=== PATIENT | male | born 1945 | race Caucasian/White ===

== ENCOUNTER 2016-10-05 09:24 | Observation (INO) | payer OTHER, MEDICARE ==
[~2016-10-05] VITALS: Ht 175.3 cm; Wt 117.0 kg
[2016-10-05] VITALS (10 sets, daily range): BP systolic 143–187; BP diastolic 81–109; PULSE 63–84; RESP 17–20; TEMP 98–98.5; O2SAT 92–97
[~2016-10-05 09:24] MED LIST: CARB0.5D16 EACH EYE; EFFE75CA PO; HYDR-3129 PO; KETO2SHA5 TOP; METF500 PO; MIRT30TA PO; NOVOLOGMXP SQ; PRAV10 PO; WARF5TAB PO; [UNRECOGNIZED DRUG - CODE] PO
[2016-10-05] MEDS ORDERED: SODIUM CHLOR 0.9% 1000 ML INJ 1,000 ML IV SCH (09:58)
[2016-10-05] MEDS ORDERED: SODIUM CHLORIDE 0.9% FLUSH 10 ML FLUSH IVF PRN (10:00)
[2016-10-05] MEDS ORDERED: MORPHINE SULFATE 4 MG/ML INJ IV PUSH ONE (10:15)
[2016-10-05] MEDS ORDERED: ONDANSETRON HCL 4 MG/2 ML VIAL IV PUSH ONE (10:15)
[2016-10-05 10:35] LABS: AUTOMATED NEUTROPHIL # 12.9 TH/MM3 (1.8-7.7); BASOPHIL # 0.1 TH/MM3 (0-0.2); BASOPHIL % 0.5 % (0.0-2.0); EOSINOPHIL # 0.1 TH/MM3 (0-0.4); EOSINOPHIL % 0.6 % (0.0-4.0); HEMATOCRIT 48.6 % (39.0-51.0); HEMO FLAGS DIFF FINAL; LYMPH % 11.3 % (9.0-44.0); LYMPHOCYTE # 1.8 TH/MM3 (1.0-4.8); MEAN CELL VOLUME 86.7 FL (80.0-100.0); MEAN CORPUSCULAR HEMOGLOBIN 27.8 PG (27.0-34.0); MEAN CORPUSCULAR HGB CONC 32.1 % (32.0-36.0); MONO % 6.1 % (0.0-8.0); NEUT % 81.5 % (16.0-70.0); PLATELET COUNT 169 TH/MM3 (150-450); RED CELL DISTRIBUTION WIDTH 16.6 % (11.6-17.2); WHITE BLOOD COUNT 15.8 TH/MM3 (4.0-11.0)
[2016-10-05] MEDS ORDERED: PRAV10TA PO (10:41)
[2016-10-05] MEDS ORDERED: METF1000 PO (10:41)
[2016-10-05] MEDS ORDERED: KETO2CRE TOPICAL (10:41)
[2016-10-05] MEDS ORDERED: LISI10TA3 PO (10:41)
[2016-10-05] MEDS ORDERED: SOTA80TA PO (10:41)
[2016-10-05] MEDS ORDERED: WARF-21 PO (10:41)
[2016-10-05] MEDS ORDERED: MIRT30TA PO (10:41)
[2016-10-05] MEDS ORDERED: GABA300C5 PO (10:41)
[2016-10-05] MEDS ORDERED: BUSP10TA PO (10:41)
[2016-10-05] MEDS ORDERED: OMEP20TA PO (10:41)
[2016-10-05] MEDS ORDERED: FURO20TA PO (10:41)
[2016-10-05] MEDS ORDERED: VENL75CA44 PO (10:41)
[2016-10-05] MEDS ORDERED: FLUO0.022 TOPICAL (10:41)
[2016-10-05] MEDS ORDERED: NOVOINJ2 SQ (10:41)
[2016-10-05 10:54] LABS: BICARBONATE 29.5 MEQ/L (21.0-32.0)
[2016-10-05 10:55] LABS: POTASSIUM 4.7 MEQ/L (3.5-5.1)
[2016-10-05 10:59] LABS: INTERNATIONAL NORMALIZED RATIO 1.9 RATIO; PROTHROMBIN TIME - PATIENT 21.8 SEC (9.8-11.6)
--- NOTE | 2016-10-05 11:00 | RADRPT ---
EXAM DATE/TIME: 10/05/2016 10:25 [place] COMPARISON: No previous studies available for comparison. INDICATIONS : Abdomen pain with nausea and vomiting since Tuesday ORAL CONTRAST: No oral contrast ingested. RADIATION DOSE: 19.81 CTDIvol (mGy) MEDICAL HISTORY : Cardiovascular disease. Hypertension. SURGICAL HISTORY : CABG ENCOUNTER: Initial ACUITY: 1 day PAIN SCALE: 3/10 LOCATION: Abdomen TECHNIQUE: Volumetric scanning of the abdomen and pelvis was performed. Using automated exposure control and ad justment of the mA and/or kV according to patient size, radiation dose was kept as low as reasonably achievable to obtain optimal diagnostic quality images. DICOM format image data is available electro nically for review and comparison. FINDINGS: LOWER LUNGS: Linear scarring or atelectasis in both lung bases. No confluent infiltrate LIVER: Homogeneous density without lesion. There is no dilation of the biliary tree. No calcified gallston es. SPLEEN: Normal size without lesion. PANCREAS: There is some haziness in the peripancreatic fat inferior to the organ and adjacent to third portion of the duodenum. The pancreas itself is radiographically intact. KIDNEYS: Normal in size and shape. There is no mass, stone, or hydronephrosis. 2.7 cm hypodensity posteriorly in the inferior pole cortex of right kidney is characteristic of a cyst. ADRENAL GLANDS: [place] nodule in the right adrenal gland likely represents an adenoma. VASCULAR: There is no aortic aneurysm. BOWEL/MESENTERY: Severe diverticular disease of the sigmoid without diverticulitis. ABDOMINAL WALL: Within normal limits. RETROPERITONEUM: There is no lymphadenopathy. BLADDER: No wall thickening or mass. REPRODUCTIVE: Within normal limits. INGUINAL: Small bilateral hernias which only contain fat. 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 There is been surgical resection of a number of inferior ribs in the right chest laterally with some herniation of the upper abdominal contents into the marcia onal lateral soft tissues. CONCLUSION: 1. Stranding in the fatty tissues juxtaposed between the head and uncinate process of the pancreas an d the adjacent third portion of the duodenum. Diagnostic considerations include early diverticulitis or duodenitis. Please correlate with laboratory findings. 2. Probable postsurgical changes with multiple lateral rib resections inferiorly in the right hemitho rax. 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 3. Diverticular disease of sigmoid without diverticulitis. 4. Bilateral small inguinal hernias which only contain fat. Xavier Hu MD on October 05, 2016 at 10:48 Board Certified Radiologist. This report was verified electronically.
[2016-10-05] MEDS ORDERED: COUM5TAB PO (11:06)
[2016-10-05] MEDS ORDERED: NOVO7030P2 SQ (11:06)
[2016-10-05] MEDS ORDERED: ARTISOL EACH EYE (11:06)
[2016-10-05] MEDS ORDERED: FLUO0.05 TOPICAL (11:06)
[2016-10-05] MEDS ORDERED: METF500T PO (11:06)
[2016-10-05] MEDS ORDERED: CIPROFLOXACIN 400 MG PREMIX 200 ML IV ONE (11:45)
[2016-10-05] MEDS ORDERED: metroNIDAZOLE 500 MG INJ 100 ML IV ONE (11:45)
--- NOTE | 2016-10-05 12:17 | PD ---
HPI Chief Complaint: GI Complaint Time Seen by Provider: 09:39 Travel History International Travel<30 days: No Contact w/Intl Traveler<30days: No Traveled to known affect area: No History of Present Illness HPI 70-year-old male came to the emergency room with history of abdominal pain, vomiting and rectal bleed since yesterday. Patient says that he vomited numerous times and mostly undigested food has come out with no blood. He is also having rectal bleed which is 2 since last night. This is bright red. He has history of hemorrhoids and to him it seems like hemorrhoid bleed but he is not sure. Abdominal pain is mostly upper abdomen and nonradiating. No aggravating or relieving factors identified. Patient is on Coumadin for atrial fibrillation. No history of fever or chills. His last bloody bowel movement was earlier this morning. Patient seems to be anxious and in moderate distress but answering questions appropriately. He has had history of duodenal ulcer a few years ago. Patient mostly goes to [facility] for his care. His vital signs were within acceptable range. [facility] [place] Past Medical History Narrative Medical List of his past medical, surgical, social and family history is reviewed from the nursing note. Hx Anticoagulant Therapy: Yes (warfarin) Arthritis: Yes Asthma: No Autoimmune Disease: No Anxiety: Yes Depression: Yes Heart Rhythm Problems: Yes (a fib) Cancer: No Cardiac Catheterization: Yes Cardiovascular Problems: Yes (A-FIB) High Cholesterol: Yes Chemotherapy: No Chest Pain: No Congestive Heart Failure: No COPD: Yes Cerebrovascular Accident: No Diabetes: Yes Patient Takes Glucophage: Yes Diminished Hearing: Yes (HEARING AIDS) Endocrine: No Gastrointestinal Disorders: Yes GERD: Yes Genitourinary: No Headaches: Yes Hiatal Hernia: No Hypertension: Yes Immune Disorder: No Kidney Stones: No Musculoskeletal: Yes (bilateral legs) Neurologic: Yes Psychiatric: Yes Reproductive: No Respiratory: Yes (COPD) Migraines: No Myocardial Infarction: Yes Radiation Therapy: No Renal Failure: No Seizures: No Sickle Cell Disease: No Sleep Apnea: Yes Thyroid Disease: No Ulcer: No Tetanus Vaccination: Unknown Influenza Vaccination: Yes Past Surgical History Abdominal Surgery: No AICD: No Arteriovenous Shunt: No Cardiac Surgery: Yes (double bypass, aortic valve replacement, stent) Coronary Artery Bypass Graft: Yes (DOUBLE BYPASS, AORTIC VALVE, STENT) Ear Surgery: No Endocrine Surgery: No Eye Surgery: No Genitourinary Surgery: No Insulin Pump: No Joint Replacement: No Oral Surgery: Yes (removal of all the teeth) Thoracic Surgery: Yes (for heart surgeries) Other Surgery: Yes Social History Alcohol Use: Yes (OCCASIONAL) Tobacco Use: No (QUIT TUESDAY) Substance Use: No Allergies-Medications (Allergen,Severity, Reaction): Coded Allergies: metformin (Unverified Adverse Reaction, Unknown, 10/05/16) LISTED ALLERGY ON PAPERWORK FROM [facility], BUT PT IS CURRENTLY TAKING METFORMIN niacin (Unverified Adverse Reaction, Unknown, 10/05/16) LISTED ALLERGY ON PAPERWORK FROM [facility] pravastatin (Verified Adverse Reaction, Unknown, 10/05/16) LISTED ALLERGY ON PAPERWORK FROM [facility], BUT PT IS CURRENTLY TAKING PRAVASTATIN simvastatin (Verified Adverse Reaction, Unknown, 10/05/16) LISTED ALLERGY ON PAPERWORK FROM [facility] Comments List of his allergies reviewed from the nursing note. Reported Meds & Prescriptions Reported Meds & Active Scripts Active Reported Coumadin (Warfarin) 5 Mg Tab 10 Mg PO TUESDAY Take 2 tablets (10mg) daily on Wednesdays Artificial Tears Eye Drops (Dextran 70/Hypromellose) 15 Ml Drops 1 Drop EACH EYE QID Metformin (Metformin HCl) 500 Mg Tab 2,000 Mg PO DAILY With a meal Fluocinonide Topical (Fluocinonide) 0.05% Cream 1 Applic TOPICAL BID PRN Apply thin layer to affected area(s) Novolin 70-30 Inj (Insulin Human Isoph/Insulin Regular) 1,000 Unit/10 Ml Vial 42 Units SQ BIDAC Warfarin 7.5 Mg Tab 7.5 Mg PO [facility] Take 1&1/2 tablets (7.5mg) daily on Tuesday,Tuesday,Tuesday,, Tuesday and Tuesday Furosemide 20 Mg Tab 20 Mg PO DAILY Ketoconazole Topical 2% Cream 1 Applic TOPICAL BID Gabapentin 300 Mg Cap 600 Mg PO TID Pravastatin 10 Mg Tab 10 Mg PO HS Buspirone (Buspirone HCl) 10 Mg Tab 10 Mg PO BID Sotalol (Sotalol HCl) 80 Mg Tab 80 Mg PO BID Lisinopril 10 Mg Tab 5 Mg PO DAILY Venlafaxine ER 24 HR (Venlafaxine HCl) 75 Mg Cap 225 Mg PO DAILY Mirtazapine 30 Mg Tab 30 Mg PO HS Narrative Medication List of his home medications reviewed from the nursing note. Review of Systems Except as stated in HPI: all other systems reviewed are Neg Physical Exam Narrative GENERAL: Awake, alert, moderate distress, anxious SKIN: Focused skin assessment warm/dry. HEAD: Atraumatic. Normocephalic. EYES: Pupils equal and round. No scleral icterus. No injection or drainage. ENT: No nasal bleeding or discharge. Mucous membranes pink and moist. NECK: Trachea midline. No JVD. CARDIOVASCULAR: Regular rate and rhythm. No murmur appreciated. RESPIRATORY: No accessory muscle use. Clear to auscultation. Breath sounds equal bilaterally. GASTROINTESTINAL: Abdomen is distended and tense but nontender mostly. Hepatic and splenic margins not palpable. MUSCULOSKELETAL: No obvious deformities. No clubbing. No cyanosis. No edema. NEUROLOGICAL: Awake and alert. No obvious cranial nerve deficits. Motor grossly within normal limits. Normal speech. PSYCHIATRIC: Appropriate mood and affect; insight and judgment normal. Data Data Last Documented VS Vital Signs Date Time Temp Pulse Resp B/P (MAP) Pulse Ox O2 Delivery O2 Flow Rate FiO2 10/05/16 10:43 63 20 143/81 (101) 96 Room Air 10/05/16 09:25 98.5 Orders Orders Basic Metabolic Panel (Bmp) (10/05/16 09:58) Complete Blood Count With Diff (10/05/16 09:58) Prothrombin Time / Inr (Pt) (10/05/16 09:58) Type And Screen (10/05/16 09:58) Ecg Monitoring (10/05/16 09:58) Iv Access Insert/Monitor (10/05/16 09:58) Oximetry (10/05/16 09:58) Sodium Chlor 0.9% 1000 Ml Inj (Ns 1000 M (10/05/16 09:58) Sodium Chloride 0.9% Flush (Ns Flush) (10/05/16 10:00) Electrocardiogram (10/05/16 ) Morphine Inj (Morphine Inj) (10/05/16 10:15) Ondansetron Inj (Zofran Inj) (10/05/16 10:15) Ct Abd/Pel W/O Iv Contrast (10/05/16 ) Ciprofloxacin 400 Mg Premix (Cipro 400 M (10/05/16 11:45) Metronidazole 500 Mg Inj (Flagyl 500 Mg (10/05/16 11:45) Sodium Chloride 0.9... W/Pantoprazole In (10/05/16 12:50) Sodium Chloride 0.9... W/Pantoprazole In (10/05/16 12:50) Consult Gastroenterology (10/05/16 ) Admit Order (Ed Use Only) (10/05/16 12:47) Place In Observation (10/05/16 ) Vital Signs (Adult) Q4H (10/05/16 12:46) Activity Oob With Assistance (10/05/16 12:46) Diet Clear Liquid (10/05/16 Lunch) Sodium Chlor 0.9% 1000 Ml Inj (Ns 1000 M (10/05/16 12:46) Sodium Chloride 0.9% Flush (Ns Flush) (10/05/16 13:00) Sodium Chloride 0.9% Flush (Ns Flush) (10/05/16 21:00) Acetaminophen (Tylenol) (10/05/16 13:00) Ondansetron Inj (Zofran Inj) (10/05/16 13:00) Basic Metabolic Panel (Bmp) (10/06/16 06:00) Complete Blood Count With Diff (10/06/16 06:00) Scd Bilateral/Knee High GABRIELLE.BID (10/05/16 12:46) Naloxone Inj (Narcan Inj) (10/05/16 13:00) Docusate Sodium-Senna (Ciara-Colace) (10/05/16 21:00) Magnesium Hydroxide Liq (Milk Of Magnesi (10/05/16 13:00) Sennosides (Senokot) (10/05/16 13:00) Bisacodyl Supp (Dulcolax Supp) (10/05/16 13:00) Lactulose Liq (Lactulose Liq) (10/05/16 13:00) Pantoprazole Inj (Protonix Inj) (10/05/16 21:00) Labs Laboratory Tests Test 10/05/16 10:20 White Blood Count 15.8 TH/MM3 Red Blood Count 5.60 MIL/MM3 Hemoglobin 15.6 GM/DL Hematocrit 48.6 % Mean Corpuscular Volume 86.7 FL Mean Corpuscular Hemoglobin 27.8 PG Mean Corpuscular Hemoglobin Concent 32.1 % Red Cell Distribution Width 16.6 % Platelet Count 169 TH/MM3 Mean Platelet Volume 8.2 FL Neutrophils (%) (Auto) 81.5 % Lymphocytes (%) (Auto) 11.3 % Monocytes (%) (Auto) 6.1 % Eosinophils (%) (Auto) 0.6 % Basophils (%) (Auto) 0.5 % Neutrophils # (Auto) 12.9 TH/MM3 Lymphocytes # (Auto) 1.8 TH/MM3 Monocytes # (Auto) 1.0 TH/MM3 Eosinophils # (Auto) 0.1 TH/MM3 Basophils # (Auto) 0.1 TH/MM3 CBC Comment DIFF FINAL Differential Comment Prothrombin Time 21.8 SEC Prothromb Time International Ratio 1.9 RATIO Blood Urea Nitrogen 14 MG/DL Creatinine 0.91 MG/DL Random Glucose 226 MG/DL Calcium Level 8.8 MG/DL Sodium Level 137 MEQ/L Potassium Level 4.7 MEQ/L Chloride Level 100 MEQ/L Carbon Dioxide Level 29.5 MEQ/L Anion Gap 8 MEQ/L Estimat Glomerular Filtration Rate 83 ML/MIN Total Bilirubin 0.7 MG/DL Direct Bilirubin 0.1 MG/DL Indirect Bilirubin 0.6 MG/DL Aspartate Amino Transf (AST/SGOT) 30 U/L Alanine Aminotransferase (ALT/SGPT) 30 U/L Alkaline Phosphatase 98 U/L Total Protein 7.4 GM/DL Albumin 3.2 GM/DL Lipase 230 U/L [facility] Medical Decision Making Medical Screen Exam Complete: Yes Emergency Medical Condition: Yes Medical Record Reviewed: Yes (twelve-lead EKG was reviewed by me. Normal sinus rhythm, normal axis, nonspecific ST-T wave changes. Heart rate of 82 bpm. ) Interpretation(s) Twelve-lead EKG was reviewed by me. Normal sinus rhythm, normal axis, nonspecific ST-T wave changes. Heart rate of 82 bpm. Differential Diagnosis Upper GI bleed, lower GI bleed, hemorrhoids, gastric ulcer, duodenal ulcer, diverticulitis Narrative Course 12:42 PM blood test results of back and patient has slight leukocytosis. The scan is suggestive of duodenitis. I have started the patient on IV Protonix bolus and drip. Patient was given medication for pain as well. I discussed the case with the GI specialist Dr. Rick was honey grader and blender and he agrees with admission. Awaiting for the hospitalist call back. Critical Care Narrative Aggregate critical care time was 30 minutes. Time to perform other separately billable procedures was not included in the critical care time. My time did not include minutes spent treating any other patients simultaneously or on activities that did not directly contribute to the patient's treatment. The services I provided to this patient were to treat and/or prevent clinically significant deterioration that could result in: GI bleed, 1 night's, Protonix bolus and drip I provided critical care services requiring my management, as noted below: Chart data review, documentation time, medication orders and management, vital sign assessments/reviewing monitor data, ordering and reviewing lab tests, ordering and interpreting/reviewing x-rays and diagnostic studies, care of the patient and discussion of the patient with the admitting physicians. Procedures EKG Prior to Arrival: No HemaPrompt Point of Care Internal Pos. & Neg. Controls: Passed Fecal Specimen Occult Blood: Positive Physician Communication Physician Communication Dr. Rick Diagnosis Primary Impression: Duodenitis Additional Impressions: gastric outlet syndrome Vomiting Qualified Codes: R11.2 - Nausea with vomiting, unspecified Abdominal pain Qualified Codes: R10.84 - Generalized abdominal pain Rectal bleeding Admitting Information Admitting Physician Requests: Observation Scripts Pantoprazole (Protonix) 40 Mg Tab 40 MG PO BID for Reflux, #60 TAB 0 Refills Prov: Ish Subramanian 10/07/16 Metronidazole (Flagyl) 500 Mg Tab 500 MG PO Q8HR for Infection, #30 TAB Prov: Ish Subramanian 10/07/16 Ciprofloxacin (Cipro) 500 Mg Tab 500 MG PO Q12HR for Infection, #20 TAB Prov: Ish Subramanian 10/07/16 Kimberly Rojas MD Oct 05, 2016 12:17
[2016-10-05] MEDS ORDERED: PANTOPRAZOLE INJ 80 MG in SODIUM CHLORIDE 0.9% INJ 100 ML IV SCH (12:50)
[2016-10-05] MEDS ORDERED: PANTOPRAZOLE INJ 80 MG in SODIUM CHLORIDE 0.9% INJ 35 ML IV ONE (12:50)
[2016-10-05] MEDS ORDERED: NALOXONE HCL 0.4 MG/ML AMP IV PRN (13:00)
[2016-10-05] MEDS ORDERED: ONDANSETRON HCL 4 MG/2 ML VIAL IVP PRN (13:00)
[2016-10-05] MEDS ORDERED: LACTULOSE SYRUP 20 GM/30 ML CUP PO PRN (13:00)
[2016-10-05] MEDS ORDERED: ACETAMINOPHEN 325 MG TAB PO PRN ×2 (13:00→15:15)
[2016-10-05] MEDS ORDERED: BISACODYL 10 MG SUPP RECTAL PRN (13:00)
[2016-10-05] MEDS ORDERED: SENNOSIDES 8.6 MG TAB PO PRN (13:00)
[2016-10-05] MEDS ORDERED: MAGNESIUM HYDROXIDE SUSP 30 ML CUP PO PRN (13:00)
[2016-10-05] MEDS ORDERED: SODIUM CHLORIDE 0.9% FLUSH 10 ML FLUSH IV FLUSH PRN (13:00)
--- NOTE | 2016-10-05 13:50 | PD.CONS ---
HPI History of Present Illness This is a 70 year old male with a history of atrial fibrillation (on Coumadin), who presented to the emergency room with abdominal pain with associated nausea/ vomiting and rectal bleeding that began Tuesday afternoon. He describes the pain as a constant diffuse abdominal pain. This was initially sharp, but now is more a constant ache. He has associated nausea and vomiting with undigested food, but no hematemesis. He denies any diarrhea or recent straining to move his bowels. He reports that he has some bloating, but denies fever or chills. He Had the sudden urge to move his bowels last night, but passed a large amount of red blood- independent from stool. He then had another episode with a smaller amount of blood this morning. His symptoms are aggravated by oral intake and partially relieved with the Morphine here in the hospital. His last colonoscopy was through the [place] around January of 2016 and he reports that he had 36 benign polyps removed at that time. He states he is scheduled for another colonoscopy at the end of this year. His INR is 1.9. HH stable at 15.6 /48.6. CT Abdomen and pelvis without IV contrast (10/05/16)---> stranding in the fatty tissues juxtaposed between the head and uncinate process of the pancreas and the adjacent third portion of the duodenum. Diagnostic considerations include early diverticulitis or duodenitis. (Chaya Thomas) PFSH Past Medical History Anxiety/Depression Atrial fibrillation Hyperlipidemia DM GERD HTN COPD CAD/[place] Sleep apnea Valvular heart disease Past Surgical History Cardiac catheterization with stent CABG Aortic valve replacement- pig Tooth extraction (Chaya Thomas) Coded Allergies: metformin (Unverified Adverse Reaction, Unknown, 10/05/16) LISTED ALLERGY ON PAPERWORK FROM [place], BUT PT IS CURRENTLY TAKING METFORMIN niacin (Unverified Adverse Reaction, Unknown, 10/05/16) LISTED ALLERGY ON PAPERWORK FROM [place] pravastatin (Verified Adverse Reaction, Unknown, 10/05/16) LISTED ALLERGY ON PAPERWORK FROM [place], BUT PT IS CURRENTLY TAKING PRAVASTATIN simvastatin (Verified Adverse Reaction, Unknown, 10/05/16) LISTED ALLERGY ON PAPERWORK FROM [place] Medications Allergies Coded Allergies Type Severity Reaction Last Updated Verified metformin Adverse Reaction Unknown 10/05/16 No niacin Adverse Reaction Unknown 10/05/16 No pravastatin Adverse Reaction Unknown 10/05/16 Yes simvastatin Adverse Reaction Unknown 10/05/16 Yes Active Scripts Medications Dose Route/Sig Max Daily Dose Days Date Category Dose Instructions Coumadin (Warfarin) 5 Mg Tab 10 Mg PO Tuesday10/05/16 Reported Take 2 tablets (10mg) daily on Wednesdays Artificial Tears Eye Drops (Dextran 70/Hypromellose) 15 Ml Drops 1 Drop EACH EYE QID 10/05/16 Reported Metformin (Metformin HCl) 500 Mg Tab 2,000 Mg PO DAILY 10/05/16 Reported With a meal Fluocinonide Topical (Fluocinonide) 0.05% Cream 1 Applic TOPICAL BID PRN 10/05/16 Reported Apply thin layer to affected area(s) Novolin 70-30 Inj (Insulin Human Isoph/Insulin Regular) 1,000 Unit/10 Ml Vial 42 Units SQ BIDAC 10/05/16 Reported Warfarin 7.5 Mg Tab 7.5 Mg PO SUMOTUTHFRSA 10/05/16 Reported Take 1&1/2 tablets (7.5mg) daily on Tuesday,Tuesday,Tuesday, , Tuesday and Tuesday Furosemide 20 Mg Tab 20 Mg PO DAILY 10/05/16 Reported Ketoconazole Topical 2% Cream 1 Applic TOPICAL BID 10/05/16 Reported Gabapentin 300 Mg Cap 600 Mg PO TID 10/05/16 Reported Pravastatin 10 Mg Tab 10 Mg PO HS 10/05/16 Reported Buspirone (Buspirone HCl) 10 Mg Tab 10 Mg PO BID 10/05/16 Reported Omeprazole 20 Mg Tab 40 Mg PO DAILY 10/05/16 Reported Take before a meal Sotalol (Sotalol HCl) 80 Mg Tab 80 Mg PO BID 10/05/16 Reported Lisinopril 10 Mg Tab 5 Mg PO DAILY 10/05/16 Reported Venlafaxine ER 24 HR (Venlafaxine HCl) 75 Mg Cap 225 Mg PO DAILY 10/05/16 Reported Mirtazapine 30 Mg Tab 30 Mg PO HS 10/05/16 Reported Family History Sister from unknown type of cancer Dad had CVA Mother had DM Social History Recently quit smoking, prior to the weekend was smoking 1/2- 1ppd Occasional ETOH (Chaya Thomas) Review of Systems Constitutional: COMPLAINS OF: Fatigue, DENIES: Fever, Weight loss, Chills, Change in appetite Respiratory: DENIES: Cough, Shortness of breath Cardiovascular: DENIES: Chest pain Gastrointestinal: COMPLAINS OF: Abdominal pain, Nausea, Vomiting, Swelling of Abdomen, DENIES: Black stools, Bloody stools, Constipation, Diarrhea, Heartburn , Hematemesis Musculoskeletal: DENIES: Joint pain Integumentary: DENIES: Abnormal pigmentation Hematologic/lymphatic: DENIES: Bruising Neurologic: DENIES: Headache Psychiatric: DENIES: Confusion (Chaya Thomas) GI Exam Vitals I&O Vital Signs Date Time Temp Pulse Resp B/P (MAP) Pulse Ox O2 Delivery O2 Flow Rate FiO2 10/05/16 10:43 63 20 143/81 (101) 96 Room Air 10/05/16 10:10 96 Room Air 10/05/16 09:25 98.5 84 20 165/93 (117) 95 Room Air I/O 10/04/16 10/04/16 10/04/16 10/05/16 10/05/16 10/05/16 07:00 15:00 23:00 07:00 15:00 23:00 Intake Total 1000 ml Balance 1000 ml Intake IV Total [address] Abdomen and pelvis without IV contrast (10/05/16)---> stranding in the fatty tissues juxtaposed between the head and uncinate process of the pancreas and the adjacent third portion of the duodenum. Diagnostic considerations include early diverticulitis or duodenitis. Laboratory Test 10/05/16 10:20 White Blood Count 15.8 TH/MM3 Red Blood Count 5.60 MIL/MM3 Hemoglobin 15.6 GM/DL Hematocrit 48.6 % Mean Corpuscular Volume 86.7 FL Mean Corpuscular Hemoglobin 27.8 PG Mean Corpuscular Hemoglobin Concent 32.1 % Red Cell Distribution Width 16.6 % Platelet Count 169 TH/MM3 Mean Platelet Volume 8.2 FL Neutrophils (%) (Auto) 81.5 % Lymphocytes (%) (Auto) 11.3 % Monocytes (%) (Auto) 6.1 % Eosinophils (%) (Auto) 0.6 % Basophils (%) (Auto) 0.5 % Neutrophils # (Auto) 12.9 TH/MM3 Lymphocytes # (Auto) 1.8 TH/MM3 Monocytes # (Auto) 1.0 TH/MM3 Eosinophils # (Auto) 0.1 TH/MM3 Basophils # (Auto) 0.1 TH/MM3 CBC Comment DIFF FINAL Differential Comment Prothrombin Time 21.8 SEC Prothromb Time International Ratio 1.9 RATIO Blood Urea Nitrogen 14 MG/DL Creatinine 0.91 MG/DL Random Glucose 226 MG/DL Calcium Level 8.8 MG/DL Sodium Level 137 MEQ/L Potassium Level 4.7 MEQ/L Chloride Level 100 MEQ/L Carbon Dioxide Level 29.5 MEQ/L Anion Gap 8 MEQ/L Estimat Glomerular Filtration Rate 83 ML/MIN Physical Examination HEENT: Normocephalic; atraumatic; no jaundice. CHEST: CTA CARDIAC: RRR ABDOMEN: Soft, obese, mildly distended, mild diffuse tenderness, no hepatosplenomegaly; bowel sounds are present in all four quadrants. EXTREMITIES: No clubbing, cyanosis, or edema. SKIN: Normal; no rash; no jaundice. RESIDENTIAL ROOFER: No focal deficits; alert and oriented times three. (Chaya Thomas) Assessment and Plan Plan ASSESSMENT: - Lower GI Bleeding. 2 episodes of rectal bleeding, independent from stool- large amount last night, small to moderate amount today. Associated abdominal pain, n/v. No diarrhea, constipation. CT Abdomen and pelvis without IV contrast (10/05/16)---> stranding in the fatty tissues juxtaposed between the head and uncinate process of the pancreas and the adjacent third portion of the duodenum. Diagnostic considerations include early diverticulitis or duodenitis. Pt reports last colonoscopy was January of 2016 and that he had 36 benign polyps removed at that time. He states he is scheduled for another colonoscopy at the end of this year. His INR is 1.9. HH stable at 15.6/48.6. - Abdominal pain, n/v. CT as above. Began Tuesday. PPI. Will check lipase. PPI. Add flagyl - Leukocytosis. WBC 15.8. Add flagyl. - Atrial fibrillation, on coumadin at home. - COPD, HTN, CAD, DM, Hyperlipidemia per attending PLAN: - Clear liquids - Cipro/Flagyl - PPI - Stool studies - Lipase - LFT - CBC, CMP - Possible egd/colonoscopy after the above and based on clinical status - Pt seen and examined by Dr. Rick and myself and this note is written on his behalf (Thomas,Chaya Naomy POWER TRANSFORMER ASSEMBLER) Physician Comments Seen and examined, plan as above. Further recommendations to follow. (Jorge Rick MD) Chaya Thomas Oct 05, 2016 13:50 Jorge Rick MD Oct 05, 2016 16:04
[2016-10-05] MEDS ORDERED: ACETAMINOPHEN/HYDROcodone 325 MG/5 MG TAB PO PRN (15:15)
[2016-10-05] MEDS ORDERED: MORPHINE SULFATE 4 MG/ML INJ IV PRN ×2 (15:15)
[2016-10-05] MEDS: SODIUM CHLOR 0.9% 1000 ML INJ 1,000 ML IV SCH (15:30)
--- NOTE | 2016-10-05 16:10 | HHI.HP ---
HPI Service [facility] Primary Care Physician [facility] Admission Diagnosis duodenitis, lower GI bleed, abdominal pain Diagnoses: Chief Complaint: abdominal pain, nausea/vomiting, rectal bleeding Travel History International Travel<30 Days: No Contact w/Intl Traveler <30 Da: No Traveled to Known Affected Are: No History of Present Illness Written by Yolanda Ingram, acting as scribe for Dr. Lange on 10/05/16 at 14:02. This note was transcribed by scribe Yolanda Ingram PA-C. I, Dr. Brenden Lange personally performed the history, physical exam, and medical decision making; and confirmed the accuracy of the information in the transcribed note. Authenticated by Dr. Brenden Lange on 10/05/16 at 22:02. 70-year-old male with history of atrial fibrillation on Coumadin, HTN, HLD, COPD , CAD s/p CABG, porcine aortic valve replacement, presents with a two day history of diffuse abdominal pains, nausea/vomiting, and bright red rectal bleeding. The patient locates the abdominal pain diffusely throughout the abdomen, described as a constant ache, associated with nausea and multiple episodes of vomiting. Denies any fevers/chills. He reports over the past two days he has had bright red blood in the toilet, not mixed with any stool. Prior to the bleeding he reports his stool was normal, formed, denies any recent diarrhea. Denies any straining on the toilet. He did eat a large barbecue meal on Tuesday prior to the onset of symptoms. He has had a previous [facility] in [facility] 2016 through the [facility], reportedly found multiple benign polyps and possible hemorrhoids. He denies any other medical complaints including no chest pain, palpitations, shortness of breath, or urinary complaints. Review of Systems Except as stated in HPI: all other systems reviewed are Neg Past Family Social History Past Medical History Anxiety/Depression Atrial fibrillation anticoagulated on Coumadin Hyperlipidemia DM GERD HTN COPD CAD/WI Sleep apnea Valvular heart disease Colon polyps Past Surgical History Cardiac catheterization with stent CABG x2 vessels Porcine Aortic valve replacement Dental extractions Reported Medications Coumadin (Warfarin) 5 Mg Tab 10 Mg PO TUESDAY Take 2 tablets (10mg) daily on Wednesdays Artificial Tears Eye Drops (Dextran 70/Hypromellose) 15 Ml Drops 1 Drop EACH EYE QID Metformin (Metformin HCl) 500 Mg Tab 2,000 Mg PO DAILY With a meal Fluocinonide Topical (Fluocinonide) 0.05% Cream 1 Applic TOPICAL BID PRN Apply thin layer to affected area(s) Novolin 70-30 Inj (Insulin Human Isoph/Insulin Regular) 1,000 Unit/10 Ml Vial 42 Units SQ BIDAC Warfarin 7.5 Mg Tab 7.5 Mg PO SUMOTUTHFRSA Take 1&1/2 tablets (7.5mg) daily on Tuesday,Tuesday,Tuesday,, Tuesday and Tuesday Furosemide 20 Mg Tab 20 Mg PO DAILY Ketoconazole Topical 2% Cream 1 Applic TOPICAL BID Gabapentin 300 Mg Cap 600 Mg PO TID Pravastatin 10 Mg Tab 10 Mg PO HS Buspirone (Buspirone HCl) 10 Mg Tab 10 Mg PO BID Omeprazole 20 Mg Tab 40 Mg PO DAILY Take before a meal Sotalol (Sotalol HCl) 80 Mg Tab 80 Mg PO BID Lisinopril 10 Mg Tab 5 Mg PO DAILY Venlafaxine ER 24 HR (Venlafaxine HCl) 75 Mg Cap 225 Mg PO DAILY Mirtazapine 30 Mg Tab 30 Mg PO HS Allergies: Coded Allergies: metformin (Unverified Adverse Reaction, Unknown, 10/05/16) LISTED ALLERGY ON PAPERWORK FROM [facility], BUT PT IS CURRENTLY TAKING METFORMIN niacin (Unverified Adverse Reaction, Unknown, 10/05/16) LISTED ALLERGY ON PAPERWORK FROM [facility] pravastatin (Verified Adverse Reaction, Unknown, 10/05/16) LISTED ALLERGY ON PAPERWORK FROM [facility], BUT PT IS CURRENTLY TAKING PRAVASTATIN simvastatin (Verified Adverse Reaction, Unknown, 10/05/16) LISTED ALLERGY ON PAPERWORK FROM [facility] Active Ordered Medications Current Medications Medications (Trade) Dose Ordered Sig/Mary Jane Route Start Time Stop Time Status Last Admin Sodium Chloride 1,000 ml @ 100 mls/hr Q10H IV 10/05/16 12:46 10/05/16 15:30 (NS Flush) 2 ml UNSCH PRN IV FLUSH 10/05/16 13:00 (NS Flush) 2 ml BID IV FLUSH 10/05/16 21:00 (Tylenol) 650 mg Q4H PRN PO 10/05/16 13:00 (Zofran Inj) 4 mg Q6H PRN IVP 10/05/16 13:00 (Narcan Inj) 0.4 mg UNSCH PRN IV 10/05/16 13:00 (Ciara-Colace) 1 tab BID PO 10/05/16 21:00 (Milk Of Magnesia Liq) 30 ml Q12H PRN PO 10/05/16 13:00 (Senokot) 17.2 mg Q12H PRN PO 10/05/16 13:00 (Dulcolax Supp) 10 mg DAILY PRN RECTAL 10/05/16 13:00 (Lactulose Liq) 30 ml DAILY PRN PO 10/05/16 13:00 (Protonix Inj) 40 mg Q12H IV PUSH 10/05/16 21:00 Ciprofloxacin/ Dextrose 200 ml @ 200 mls/hr Q12H IV 10/05/16 22:00 UNV Metronidazole 100 ml @ 100 mls/hr Q8H IV 10/05/16 22:00 UNV (Tylenol) 650 mg Q6H PRN PO 10/05/16 15:15 UNV (Curtis 5-325 Mg) 1 tab Q4H PRN PO 10/05/16 15:15 UNV (Curtis 7.5-325 Mg) 1 tab Q4H PRN PO 10/05/16 15:15 UNV (Morphine Inj) 2 mg Q3H PRN IV 10/05/16 15:15 UNV (Morphine Inj) 4 mg Q3H PRN IV 10/05/16 15:15 UNV Family History Sister from unknown cancer Dad with CVA Mother with DM Social History Smokes tobacco 1/2 to 1PPD Very seldom alcohol use Denies any illicit drug use Physical Exam Vital Signs Vital Signs Date Time Temp Pulse Resp B/P (MAP) Pulse Ox O2 Delivery O2 Flow Rate FiO2 10/05/16 15:00 80 17 157/95 (115) 97 Room Air 10/05/16 13:00 83 18 174/95 (121) 97 Room Air 10/05/16 10:43 63 20 143/81 (101) 96 Room Air 10/05/16 10:10 96 Room Air 10/05/16 09:25 98.5 84 20 165/93 (117) 95 Room Air Physical Exam GENERAL: Well-nourished, well-developed pleasant male patient in NAD. SKIN: Warm and dry. No rash. HEAD: Normocephalic. Atraumatic. EYES: Pupils equal and round. No scleral icterus. No injection or drainage. ENT: No nasal bleeding or discharge. Mucous membranes pink and moist. NECK: Supple. Trachea midline. CARDIOVASCULAR: Irregular rate and rhythm. S1, S2 noted. No murmur appreciated. RESPIRATORY: No accessory muscle use. Clear to auscultation. Breath sounds equal bilaterally. GASTROINTESTINAL: Abdomen soft, mildly distended, diffuse TTP. Normoactive bowel sounds x4. MUSCULOSKELETAL: No obvious deformities. Extremities without clubbing, cyanosis , or edema. NEUROLOGICAL: Awake and alert. No obvious cranial nerve deficits. Motor grossly within normal limits. Normal speech. PSYCHIATRIC: Appropriate mood and affect; insight and judgment normal. Laboratory Laboratory Tests Test 10/05/16 10:20 White Blood Count 15.8 Red Blood Count 5.60 Hemoglobin 15.6 Hematocrit 48.6 Mean Corpuscular Volume 86.7 Mean Corpuscular Hemoglobin 27.8 Mean Corpuscular Hemoglobin Concent 32.1 Red Cell Distribution Width 16.6 Platelet Count 169 Mean Platelet Volume 8.2 Neutrophils (%) (Auto) 81.5 Lymphocytes (%) (Auto) 11.3 Monocytes (%) (Auto) 6.1 Eosinophils (%) (Auto) 0.6 Basophils (%) (Auto) 0.5 Neutrophils # (Auto) 12.9 Lymphocytes # (Auto) 1.8 Monocytes # (Auto) 1.0 Eosinophils # (Auto) 0.1 Basophils # (Auto) 0.1 CBC Comment DIFF FINAL Differential Comment Prothrombin Time 21.8 Prothromb Time International Ratio 1.9 Blood Urea Nitrogen 14 Creatinine 0.91 Random Glucose 226 Calcium Level 8.8 Sodium Level 137 Potassium Level 4.7 Chloride Level 100 Carbon Dioxide Level 29.5 Anion Gap 8 Estimat Glomerular Filtration Rate 83 Lipase 230 Result Diagram: 10/05/16 1020 10/05/16 1020 Imaging 10/05/16 - CT abdomen/pelvis: 1. Stranding in the fatty tissues juxtaposed between the head and uncinate process of the pancreas and the adjacent third portion of the duodenum. Diagnostic considerations include early diverticulitis or duodenitis. Please correlate with laboratory findings. 2. Probable postsurgical changes with multiple lateral rib resections inferiorly in the right hemithorax. 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 3. Diverticular disease of sigmoid without diverticulitis. 4. Bilateral small inguinal hernias which only contain fat. Caprini VTE Risk Assessment Caprini VTE Risk Assessment: Mod/High Risk (score >= 2) VTE Pharm Contraindication: Active bleeding Caprini Risk Assessment Model Point Value = 1 Point Value = 2 Point Value = 3 Point Value = 5 Age 41-60 Minor surgery BMI > 25 kg/m2 Swollen legs Varicose veins or History of unexplained or recurrent spontaneous Oral contraceptives or hormone replacement Sepsis (< 1 month) Serious lung disease, including pneumonia (< 1 month) Abnormal pulmonary function Acute myocardial infarction Congestive heart failure (< 1 month) History of inflammatory bowel disease Medical patient at bed rest Age 61-74 Arthroscopic surgery Major open surgery (> 45 min) Laparoscopic surgery (> 45 min) Malignancy Confined to bed (> 72 hours) Immobilizing plaster cast Central venous access Age >= 75 History of VTE Family history of VTE Factor V Leiden Prothrombin [id number] Lupus anticoagulant Anticardiolipin antibodies Elevated serum homocysteine Heparin-induced thrombocytopenia Other congenital or acquired thrombophilia Stroke (< 1 month) Elective arthroplasty Hip, pelvis, or leg fracture Acute spinal cord injury (< 1 month) Prophylaxis Regimen Total Risk Factor Score Risk Level Prophylaxis Regimen 0-1 Low Early ambulation 2 Moderate Order ONE of the following: *Sequential Compression Device (SCD) *Heparin 5000 units SQ BID 3-4 Higher Order ONE of the following medications: *Heparin 5000 units SQ TID *Enoxaparin/Lovenox 40 mg SQ daily (WT < 150 kg, CrCl > 30 mL/min) *Enoxaparin/Lovenox 30 mg SQ daily (WT < 150 kg, CrCl > 10-29 mL/min) *Enoxaparin/Lovenox 30 mg SQ BID (WT < 150 kg, CrCl > 30 mL/min) AND/OR *Sequential Compression Device (SCD) 5 or more Highest Order ONE of the following medications: *Heparin 5000 units SQ TID (Preferred with Epidurals) *Enoxaparin/Lovenox 40 mg SQ daily (WT < 150 kg, CrCl > 30 mL/min) *Enoxaparin/Lovenox 30 mg SQ daily (WT < 150 kg, CrCl > 10-29 mL/min) *Enoxaparin/Lovenox 30 mg SQ BID (WT < 150 kg, CrCl > 30 mL/min) AND *Sequential Compression Device (SCD) Assessment and Plan Problem List: (1) Duodenitis ICD Code: K29.80 - Duodenitis without bleeding Status: Acute (2) GI bleed ICD Code: K92.2 - Gastrointestinal hemorrhage, unspecified Status: Acute (3) Abdominal pain ICD Code: R10.9 - Unspecified abdominal pain Status: Acute (4) Vomiting ICD Code: R11.10 - Vomiting, unspecified Status: Acute Assessment and Plan 70-year-old male with history of atrial fibrillation on Coumadin, HTN, HLD, COPD , CAD s/p CABG/stents, porcine aortic valve replacement, presents with a two day history of diffuse abdominal pains, nausea/vomiting, and bright red rectal bleeding. Abdominal Pain/Nausea/Vomiting: CT abd/pelvis images reviewed, shows duodenitis and possible diverticulitis. Lipase 230. +Leukocytosis WBC 15.8K, afebrile. -check LFTs and stool studies -Start on antibiotics with IV Cipro/Flagyl -Start IV Protonix 40mg bid -Clear liquid diet -Supportive treatment with IVF, antiemetics, and pain control with IV morphine prn -GI consulted, appreciate input Lower GI Bleeding: patient with bright red rectal bleeding x2days. Hgb currently stable at 15.6. -Continue to monitor CBC -holding patient's anticoagulation -GI consulted, will consider EGD/colonoscopy Atrial Fibrillation on Coumadin: chronic. INR 1.9 -holding Coumadin with GI bleeding as above -continue patient's sotalol -plan to restart anticoagulation when ok with GI Diabetes Mellitus: chronic -holding patient's metformin and 70/30 insulin while on clear liquids and decreased oral intake -monitor Accu-checks, cover with low dose SSI -hypoglycemia protocol All other medical conditions stable, continue home medications as appropriate. DVT Prophylaxis: teds/SCDs, avoid chemoprophylaxis with GI bleeding as above. Discussed Condition With Patient, ER MD, GOLD CUTTER, Chaya ROME Problem Qualifiers (1) Abdominal pain: Qualified Codes: R10.84 - Generalized abdominal pain (2) Vomiting: Qualified Codes: R11.2 - Nausea with vomiting, unspecified Yolanda Ingram PA-C Oct 05, 2016 16:10 Guillaume Lange DO Oct 05, 2016 22:02
[2016-10-05] MEDS: ACETAMINOPHEN/HYDROcodone 325 MG/7.5 MG TAB PO PRN ×2 (16:57→22:02)
[2016-10-05] MEDS ORDERED: HYPROMELLOSE EACH EYE SCH (18:00)
[2016-10-05] MEDS ORDERED: DEXTRAN EACH EYE SCH (18:00)
[2016-10-05] MEDS: GABAPENTIN 300 MG CAP PO SCH (19:16)
[2016-10-05 20:09] LABS: TOTAL BILIRUBIN ADULT 0.7 MG/DL (0.2-1.0)
[2016-10-05 20:20] LABS: INDIRECT BILIRUBIN 0.6 MG/DL (0.0-0.8)
[2016-10-05] MEDS: LISINOPRIL 5 MG TAB PO SCH (20:38)
[2016-10-05] MEDS ORDERED: GLUCAGON 1 MG/ML VIAL OTHER PRN (20:45)
[2016-10-05] MEDS ORDERED: DEXTROSE 50% IN WATER 50 ML VIAL(D50) IV PRN (20:45)
[2016-10-05] MEDS: ARTIFICIAL TEARS OPTH SOLN 15 ML BTL EACH EYE SCH (21:00)
[2016-10-05] MEDS: SOTALOL HCL 80 MG TAB PO SCH (22:04)
[2016-10-05] MEDS: DOCUSATE SODIUM 50 MG/SENNA 8.6 MG TAB PO SCH (22:04)
[2016-10-05] MEDS: busPIRone HCL 10 MG TAB PO SCH (22:05)
[2016-10-05] MEDS: MIRTAZAPINE 15 MG TAB PO SCH (22:06)
[2016-10-05] MEDS: CIPROFLOXACIN 400 MG PREMIX 200 ML IV SCH (22:07)
[2016-10-05] MEDS: PANTOPRAZOLE SODIUM 40 MG VIAL IV PUSH SCH (22:07)
[2016-10-05] MEDS: SODIUM CHLORIDE 0.9% FLUSH 10 ML FLUSH IV FLUSH SCH (22:07)
[2016-10-05] MEDS ORDERED: cloNIDine HCL 0.1 MG TAB PO ONE (22:45)
[2016-10-06] VITALS (11 sets, daily range): BP systolic 94–144; BP diastolic 62–89; PULSE 61–79; RESP 16–19; TEMP 97.6–98.1; O2SAT 94–97
[2016-10-06] MEDS: INSULIN ASPART SUPPLEMENTAL SCALE SQ SCH ×5 (00:37→21:36)
[2016-10-06] MEDS: metroNIDAZOLE 500 MG INJ 100 ML IV SCH ×3 (00:38→14:02)
[2016-10-06] MEDS: SODIUM CHLOR 0.9% 1000 ML INJ 1,000 ML IV SCH ×3 (00:38→17:36)
[2016-10-06] MEDS: ACETAMINOPHEN/HYDROcodone 325 MG/7.5 MG TAB PO PRN ×2 (03:33→09:32)
[2016-10-06] MEDS: ARTIFICIAL TEARS OPTH SOLN 15 ML BTL EACH EYE SCH ×4 (09:00→21:00)
[2016-10-06] MEDS: CIPROFLOXACIN 400 MG PREMIX 200 ML IV SCH (09:22)
[2016-10-06] MEDS: PANTOPRAZOLE SODIUM 40 MG VIAL IV PUSH SCH ×2 (09:22→21:30)
[2016-10-06] MEDS: SOTALOL HCL 80 MG TAB PO SCH ×2 (09:23→21:31)
[2016-10-06] MEDS: busPIRone HCL 10 MG TAB PO SCH ×2 (09:23→21:31)
[2016-10-06] MEDS: DOCUSATE SODIUM 50 MG/SENNA 8.6 MG TAB PO SCH ×2 (09:23→21:00)
[2016-10-06] MEDS: LISINOPRIL 5 MG TAB PO SCH (09:23)
[2016-10-06] MEDS: GABAPENTIN 300 MG CAP PO SCH ×3 (09:23→17:36)
[2016-10-06] MEDS: VENLAFAXINE HCL XR 75 MG CAP PO SCH (09:23)
[2016-10-06] MEDS: SODIUM CHLORIDE 0.9% FLUSH 10 ML FLUSH IV FLUSH SCH ×2 (09:24→21:30)
--- NOTE | 2016-10-06 11:23 | HHI.PR ---
Subjective Remarks Follow-up for abdominal pain. The patient reports his abdominal pain is much improved today, but still present. Pain is mild and across the entire front of his abdomen. The pain was exacerbated after breakfast today. He denies any nausea, vomiting. He hasn't had any bowel movements or bleeding overnight. He denies any fevers or chills. He states [facility], but likely to continue to follow up with them if possible. Objective Vitals Vital Signs Date Time Temp Pulse Resp B/P (MAP) Pulse Ox O2 Delivery O2 Flow Rate FiO2 10/06/16 08:30 97.6 75 16 125/84 (98) 94 10/06/16 04:05 79 10/06/16 03:19 98.1 61 17 144/84 (104) 96 10/06/16 00:04 74 10/05/16 23:37 98.4 73 18 155/94 (114) 92 10/05/16 22:05 98.2 78 18 184/103 (130) 94 10/05/16 20:13 83 10/05/16 20:07 98.0 83 18 187/101 (129) 94 10/05/16 16:00 98.2 78 20 179/109 (132) 92 10/05/16 15:00 80 17 157/95 (115) 97 Room Air 10/05/16 13:00 83 18 174/95 (121) 97 Room Air I/O 10/05/16 10/05/16 10/05/16 10/06/16 10/06/16 10/06/16 07:00 15:00 23:00 07:00 15:00 23:00 Intake Total 1335 ml 30 ml 300 ml Balance 1335 ml 30 ml 300 ml Intake IV Total 1335 ml 30 ml 300 ml # Voids 2 Result Diagram: 10/05/16 1020 10/05/16 1020 Imaging Last Impressions Abdomen/Pelvis CT 10/05/16 0000 Signed Impressions: Service Date/Time: Wednesday, October 05, 2016 10:25 - CONCLUSION: 1. Stranding in the fatty tissues juxtaposed between the head and uncinate process of the pancreas and the adjacent third portion of the duodenum. Diagnostic considerations include early diverticulitis or duodenitis. Please correlate with laboratory findings. 2. Probable postsurgical changes with multiple lateral rib resections inferiorly in the right hemithorax. 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 3. Diverticular disease of sigmoid without diverticulitis. 4. Bilateral small inguinal hernias which only contain fat. Xavier Hu MD Objective Remarks GENERAL: Well-developed well-nourished obese. In no acute distress. SKIN: Warm and dry. No lesions noted. HEENT: Normocephalic. Pupils equal and round. Mucous membranes pink and moist. CARDIOVASCULAR: Regular rate and rhythm. No murmur appreciated. RESPIRATORY: No accessory muscle use. Clear to auscultation. Breath sounds equal bilaterally. GASTROINTESTINAL: Abdomen soft, non-tender, nondistended. Bowel sounds x4. MUSCULOSKELETAL: No obvious deformities. No clubbing or cyanosis. No edema. NEUROLOGICAL: Awake and alert. No focal neurological deficits. Moves upper and lower extremities spontaneously. Normal speech. PSYCHIATRIC: Appropriate mood and affect; insight and judgment normal. A/P Problem List: (1) Duodenitis ICD Code: K29.80 - Duodenitis without bleeding Status: Acute (2) GI bleed ICD Code: K92.2 - Gastrointestinal hemorrhage, unspecified Status: Acute (3) Abdominal pain ICD Code: R10.9 - Unspecified abdominal pain Status: Acute (4) Vomiting ICD Code: R11.10 - Vomiting, unspecified Status: Resolved Assessment and Plan 70-year-old male with history of atrial fibrillation on Coumadin, HTN, HLD, COPD , CAD s/p CABG/stents, porcine aortic valve replacement, presents with a two day history of diffuse abdominal pains, nausea/vomiting, and bright red rectal bleeding. Abdominal Pain: CT abd/pelvis shows possible early duodenitis and/or diverticulitis. Lipase 230. LFTs within normal limits. +Leukocytosis WBC 15.8K , afebrile. -check stool studies -Continue on antibiotics with IV Cipro/Flagyl -Continue IV Protonix 40mg bid -Clear liquid diet -Supportive treatment with IVF, antiemetics, and pain control with IV morphine prn -GI consulted, appreciate input Lower GI Bleeding: patient with bright red rectal bleeding x2days. Hgb currently stable at 15.6. Possibly secondary to colitis/enteritis above. -Continue to monitor CBC -holding patient's anticoagulation -GI consulted, appreciate input, EGD/colonoscopy inpatient vs outpatient Atrial Fibrillation on Coumadin: chronic. INR 1.9 -holding Coumadin with GI bleeding as above -continue patient's sotalol -plan to restart anticoagulation when ok with GI Diabetes Mellitus: chronic -holding patient's metformin and 70/30 insulin while on clear liquids and decreased oral intake -monitor Accu-checks, cover with low dose SSI -hypoglycemia protocol All other medical conditions stable, continue home medications as appropriate. DVT Prophylaxis: teds/SCDs, holding Coumadin as above Discharge Planning Follow-up GI recommendations. Problem Qualifiers (1) Abdominal pain: Qualified Codes: R10.84 - Generalized abdominal pain (2) Vomiting: Qualified Codes: R11.2 - Nausea with vomiting, unspecified Ish Subramanian Oct 06, 2016 11:23
--- NOTE | 2016-10-06 12:12 | HHI.GIFU ---
Subjective Remarks Sitting up in bed. States he is feeling much better. States he had some mild discomfort after taking clears today, but is feeling good now. No n/v. Less distended. No BM yet. No further bleeding. (Chaya Thomas) Objective Vitals I&O Vital Signs Date Time Temp Pulse Resp B/P (MAP) Pulse Ox O2 Delivery O2 Flow Rate FiO2 10/06/16 11:53 97.6 66 18 123/89 (100) 97 10/06/16 08:30 97.6 75 16 125/84 (98) 94 10/06/16 04:05 79 10/06/16 03:19 98.1 61 17 144/84 (104) 96 10/06/16 00:04 74 10/05/16 23:37 98.4 73 18 155/94 (114) 92 10/05/16 22:05 98.2 78 18 184/103 (130) 94 10/05/16 20:13 83 10/05/16 20:07 98.0 83 18 187/101 (129) 94 10/05/16 16:00 98.2 78 20 179/109 (132) 92 10/05/16 15:00 80 17 157/95 (115) 97 Room Air 10/05/16 13:00 83 18 174/95 (121) 97 Room Air I/O 10/05/16 10/05/16 10/05/16 10/06/16 10/06/16 10/06/16 07:00 15:00 23:00 07:00 15:00 23:00 Intake Total 1335 ml 30 ml 300 ml Balance 1335 ml 30 ml 300 ml Intake IV Total 1335 ml 30 ml 300 ml # Voids 2 Imaging Last Impressions Abdomen/Pelvis CT 10/05/16 0000 Signed Impressions: Service Date/Time: Wednesday, October 05, 2016 10:25 - CONCLUSION: 1. Stranding in the fatty tissues juxtaposed between the head and uncinate process of the pancreas and the adjacent third portion of the duodenum. Diagnostic considerations include early diverticulitis or duodenitis. Please correlate with laboratory findings. 2. Probable postsurgical changes with multiple lateral rib resections inferiorly in the right hemithorax. 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 3. Diverticular disease of sigmoid without diverticulitis. 4. Bilateral small inguinal hernias which only contain fat. Xavier Hu MD Physical Exam HEENT: Normocephalic; atraumatic; no jaundice. CHEST: CTA CARDIAC: RRR ABDOMEN: Soft, mildly distended, nontender; no hepatosplenomegaly; bowel sounds are present in all four quadrants. EXTREMITIES: No clubbing, cyanosis, or edema. SKIN: Normal; no rash; no jaundice. JIGSAW OPERATOR: No focal deficits; alert and oriented times three. (Chaya Thomas [facility]) Assessment and Plan Plan ASSESSMENT: - Lower GI Bleeding. 2 episodes of rectal bleeding, independent from stool- large amount last night, small to moderate amount today. Associated abdominal pain, n/v. No diarrhea, constipation. CT Abdomen and pelvis without IV contrast (10/05/16)---> stranding in the fatty tissues juxtaposed between the head and uncinate process of the pancreas and the adjacent third portion of the duodenum. Diagnostic considerations include early diverticulitis or duodenitis. Pt reports last colonoscopy was January of 2016 and that he had 36 benign polyps removed at that time. He states he is scheduled for another colonoscopy at the end of this year. His INR is 1.9. No bleeding since he arrived. Labs are still pending. - Abdominal pain, n/v. CT as above. Improved since being started on PPI with BID dosing and flagyl/cipro. It is unclear if his pain is related to severe duodenitis or possible diverticulitis. Would recommend continuing treatment and egd/colonoscopy in 4-6 weeks after treated for possible diverticulitis. - Leukocytosis. Cipro/Flagyl. Labs pending. - Atrial fibrillation, on coumadin at home. - COPD, HTN, CAD, DM, Hyperlipidemia per attending PLAN: - Full liquids - Cont. Cipro/Flagyl - Cont. PPI with BID dosing - Stool studies pending - Today's labs are still pending. If his WBC has improved and his HH is stable , and he tolerates full liquids, would advance to heart healthy diabetic diet and switch antibiotics to po. If he tolerates this, we will continue PPI with BID dosing and Cipro/Flagyl x 10 days total and recommend EGD/ Colonoscopy in 4-6 weeks at [facility] - Pt seen and examined by Dr. Rick and myself and this note is written on his behalf (Chaya Thomas) Physician Comments Plan as above, improving since yesterday, will need follow up as out patient. Further recommendations to follow. (Jorge Rick MD) Chaya Thomas Oct 06, 2016 12:12 Jorge Rick MD Oct 06, 2016 12:33
[2016-10-06 13:32] LABS: AUTOMATED NEUTROPHIL # 10.7 TH/MM3 (1.8-7.7); BASOPHIL # 0.1 TH/MM3 (0-0.2); BASOPHIL % 0.8 % (0.0-2.0); EOSINOPHIL # 0.2 TH/MM3 (0-0.4); EOSINOPHIL % 1.4 % (0.0-4.0); HEMATOCRIT 45.9 % (39.0-51.0); HEMO FLAGS DIFF FINAL; LYMPH % 11.5 % (9.0-44.0); LYMPHOCYTE # 1.6 TH/MM3 (1.0-4.8); MEAN CELL VOLUME 88.2 FL (80.0-100.0); MEAN CORPUSCULAR HEMOGLOBIN 28.2 PG (27.0-34.0); MONO % 7.7 % (0.0-8.0); NEUT % 78.6 % (16.0-70.0); PLATELET COUNT 150 TH/MM3 (150-450); RED BLOOD COUNT 5.21 MIL/MM3 (4.50-5.90); RED CELL DISTRIBUTION WIDTH 16.5 % (11.6-17.2); WHITE BLOOD COUNT 13.6 TH/MM3 (4.0-11.0)
[2016-10-06 13:56] LABS: BICARBONATE 30.1 MEQ/L (21.0-32.0); POTASSIUM 4.5 MEQ/L (3.5-5.1)
[2016-10-06] MEDS: INSULIN HUMAN NPH/R 70/30 1,000 UNITS/10 ML VIAL SQ SCH (17:35)
--- NOTE | 2016-10-06 20:14 | EKG ---
Date Performed: 10/05/2016 Time Performed: 10:04:33 PTAGE: 70 years EKG: Sinus rhythm POSSIBLE LEFT ATRIAL ENLARGEMENT BORDERLINE ECG PREVIOUS TRACING : 06/12/2015 11.40 Compared to prior tracing no significant change DOCTOR: Mason Marquez Interpretating Date/Time 10/06/2016 20:13:24
[2016-10-06] MEDS: MIRTAZAPINE 15 MG TAB PO SCH (21:31)
[2016-10-06] MEDS: CIPROFLOXACIN 500 MG TAB PO SCH (21:31)
[2016-10-06] MEDS: metroNIDAZOLE 500 MG TAB PO SCH (21:32)
[2016-10-07 00:15] VITALS: BP 143/70; PULSE 59; RESP 20; TEMP 97.7; O2SAT 90
[2016-10-07 00:35] VITALS: PULSE 67
[2016-10-07 04:14] VITALS: BP 113/69; PULSE 87; RESP 20; TEMP 97.4; O2SAT 87
[2016-10-07 04:24] VITALS: PULSE 67
[2016-10-07 04:44] LABS: AUTOMATED NEUTROPHIL # 8.5 TH/MM3 (1.8-7.7); BASOPHIL # 0.1 TH/MM3 (0-0.2); EOSINOPHIL # 0.2 TH/MM3 (0-0.4); EOSINOPHIL % 1.8 % (0.0-4.0); HEMATOCRIT 45.2 % (39.0-51.0); HEMO FLAGS DIFF FINAL; LYMPH % 10.9 % (9.0-44.0); LYMPHOCYTE # 1.2 TH/MM3 (1.0-4.8); MEAN CELL VOLUME 88.1 FL (80.0-100.0); MEAN CORPUSCULAR HEMOGLOBIN 28.5 PG (27.0-34.0); MEAN CORPUSCULAR HGB CONC 32.4 % (32.0-36.0); MONO % 6.7 % (0.0-8.0); NEUT % 79.6 % (16.0-70.0); PLATELET COUNT 157 TH/MM3 (150-450); RED BLOOD COUNT 5.13 MIL/MM3 (4.50-5.90); RED CELL DISTRIBUTION WIDTH 16.4 % (11.6-17.2); WHITE BLOOD COUNT 10.7 TH/MM3 (4.0-11.0)
[2016-10-07 04:49] LABS: INTERNATIONAL NORMALIZED RATIO 1.5 RATIO; PROTHROMBIN TIME - PATIENT 17.1 SEC (9.8-11.6)
[2016-10-07 05:08] LABS: POTASSIUM 4.1 MEQ/L (3.5-5.1)
[2016-10-07] MEDS: metroNIDAZOLE 500 MG TAB PO SCH (05:53)
[2016-10-07] MEDS: INSULIN ASPART SUPPLEMENTAL SCALE SQ SCH ×2 (07:03→11:00)
[2016-10-07] MEDS: SODIUM CHLOR 0.9% 1000 ML INJ 1,000 ML IV SCH (07:05)
[2016-10-07 07:54] VITALS: BP 149/84; PULSE 72; RESP 16; TEMP 97.6; O2SAT 94
[2016-10-07] MEDS: INSULIN HUMAN NPH/R 70/30 1,000 UNITS/10 ML VIAL SQ SCH (08:00)
--- NOTE | 2016-10-07 08:08 | HHI.PR ---
Subjective Remarks Follow-up for abdominal pain. The patient is doing well today. Abdominal pain has resolved. Tolerated a hamburger for dinner last night. He denies any nausea, vomiting. He denies any further bleeding. He denies any chest pain, shortness breath, lightheadedness, dizziness. Discussed with gastroenterology, continue oral Protonix and antibiotics for 10 days and follow up with gastroenterology in 4-6 weeks, clear to resume Coumadin. Plan of care discussed with the patient who is happy to go home today. Objective Vitals Vital Signs Date Time Temp Pulse Resp B/P (MAP) Pulse Ox O2 Delivery O2 Flow Rate FiO2 10/07/16 07:54 97.6 72 16 149/84 (105) 94 10/07/16 04:24 67 10/07/16 04:14 97.4 87 20 113/69 (84) 87 10/07/16 00:35 67 10/07/16 00:15 97.7 59 20 143/70 (94) 90 10/06/16 20:39 97.6 72 19 115/62 (79) 95 10/06/16 20:35 74 10/06/16 16:25 67 10/06/16 15:37 97.9 71 16 94/77 (83) 94 10/06/16 13:05 62 10/06/16 11:53 97.6 66 18 123/89 (100) 97 10/06/16 08:30 97.6 75 16 125/84 (98) 94 10/06/16 08:10 63 I/O 10/06/16 10/06/16 10/06/16 10/07/16 10/07/16 10/07/16 06:59 14:59 22:59 06:59 14:59 22:59 Intake Total 300 ml 1050 ml 990 ml Balance 300 ml 1050 ml 990 ml Intake IV Total 300 ml 1050 ml 990 ml # Voids 1 1 Result Diagram: 10/07/16 0405 10/07/16 0405 Imaging Last Impressions Abdomen/Pelvis CT 10/05/16 0000 Signed Impressions: Service Date/Time: Wednesday, October 05, 2016 10:25 - CONCLUSION: 1. Stranding in the fatty tissues juxtaposed between the head and uncinate process of the pancreas and the adjacent third portion of the duodenum. Diagnostic considerations include early diverticulitis or duodenitis. Please correlate with laboratory findings. 2. Probable postsurgical changes with multiple lateral rib resections inferiorly in the right hemithorax. 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 3. Diverticular disease of sigmoid without diverticulitis. 4. Bilateral small inguinal hernias which only contain fat. Xavier Hu MD Objective Remarks GENERAL: Well-developed well-nourished obese. In no acute distress. SKIN: Warm and dry. No lesions noted. HEENT: Normocephalic. Pupils equal and round. Mucous membranes pink and moist. CARDIOVASCULAR: Regular rate and rhythm. No murmur appreciated. RESPIRATORY: No accessory muscle use. Clear to auscultation. Breath sounds equal bilaterally. GASTROINTESTINAL: Abdomen soft, non-tender, nondistended. Bowel sounds x4. MUSCULOSKELETAL: No obvious deformities. No clubbing or cyanosis. No edema. NEUROLOGICAL: Awake and alert. No focal neurological deficits. Moves upper and lower extremities spontaneously. Normal speech. PSYCHIATRIC: Appropriate mood and affect; insight and judgment normal. A/P Problem List: (1) Duodenitis ICD Code: K29.80 - Duodenitis without bleeding Status: Resolved (2) GI bleed ICD Code: K92.2 - Gastrointestinal hemorrhage, unspecified Status: Resolved (3) Abdominal pain ICD Code: R10.9 - Unspecified abdominal pain Status: Resolved (4) Vomiting ICD Code: R11.10 - Vomiting, unspecified Status: Resolved Assessment and Plan 70-year-old male with history of atrial fibrillation on Coumadin, HTN, HLD, COPD , CAD s/p CABG/stents, porcine aortic valve replacement, presents with a two day history of diffuse abdominal pains, nausea/vomiting, and bright red rectal bleeding. Abdominal Pain: Likely secondary to infection. CT abd/pelvis shows possible early duodenitis and/or diverticulitis. Lipase 230. LFTs within normal limits. Significant leukocytosis which trended down and has resolved. -Continue on antibiotics with oral Cipro/Flagyl for 10 more days -Change IV Protonix 40mg bid to oral -Diet advanced as tolerated -GI consulted, appreciate input, clear for discharge and outpatient GI follow -up Lower GI Bleeding: patient with bright red rectal bleeding x2days. Hemoglobin has remained stable throughout admission. No further bleeding. Possibly secondary to colitis/enteritis above which seems to have improved. -Held patient's anticoagulation, discussed with GI, cleared to resume anticoagulation Atrial Fibrillation on Coumadin: chronic. INR 1.5 -held Coumadin with GI bleeding as above, resume -continue patient's sotalol Diabetes Mellitus: chronic -Resume patient's metformin and 70/30 insulin, he is tolerating oral intake -monitor Accu-checks, cover with low dose SSI -hypoglycemia protocol All other medical conditions stable, continue home medications as appropriate. DVT Prophylaxis: teds/SCDs, Coumadin Discharge Planning Discharge patient to home Condition on discharge: Improved Heart healthy diabetic Diet as tolerated Regular activity Rx written: Protonix, Cipro, Flagyl Follow-up with primary care physician and gastroenterology Problem Qualifiers (1) GI bleed: Qualified Codes: K92.2 - Gastrointestinal hemorrhage, unspecified (2) Abdominal pain: Qualified Codes: R10.84 - Generalized abdominal pain (3) Vomiting: Qualified Codes: R11.2 - Nausea with vomiting, unspecified Ish Subramanian Oct 07, 2016 08:08
[2016-10-07] MEDS ORDERED: PROT40TA PO (08:15)
[2016-10-07] MEDS ORDERED: CIPR-9 PO (08:15)
[2016-10-07] MEDS ORDERED: METR-1 PO (08:15)
[2016-10-07 08:30] VITALS: PULSE 63
[2016-10-07] MEDS: ARTIFICIAL TEARS OPTH SOLN 15 ML BTL EACH EYE SCH (08:56)
[2016-10-07] MEDS: CIPROFLOXACIN 500 MG TAB PO SCH (08:57)
[2016-10-07] MEDS: SODIUM CHLORIDE 0.9% FLUSH 10 ML FLUSH IV FLUSH SCH (08:57)
[2016-10-07] MEDS: VENLAFAXINE HCL XR 75 MG CAP PO SCH (08:57)
[2016-10-07] MEDS: SOTALOL HCL 80 MG TAB PO SCH (08:57)
[2016-10-07] MEDS: DOCUSATE SODIUM 50 MG/SENNA 8.6 MG TAB PO SCH (08:57)
[2016-10-07] MEDS: busPIRone HCL 10 MG TAB PO SCH (08:57)
[2016-10-07] MEDS: PANTOPRAZOLE SODIUM 40 MG VIAL IV PUSH SCH (08:57)
[2016-10-07] MEDS: GABAPENTIN 300 MG CAP PO SCH (08:57)
[2016-10-07] MEDS: LISINOPRIL 5 MG TAB PO SCH (08:58)
--- NOTE | 2016-10-07 09:26 | HHI.GIFU ---
Subjective Remarks Sitting on side of bed. No n/v, no abdominal pain. No bleeding. Tolerating diet. Would like to go home today. (Chaya Thomas) Objective Vitals I&O Vital Signs Date Time Temp Pulse Resp B/P (MAP) Pulse Ox O2 Delivery O2 Flow Rate FiO2 10/07/16 07:54 97.6 72 16 149/84 (105) 94 10/07/16 04:24 67 10/07/16 04:14 97.4 87 20 113/69 (84) 87 10/07/16 00:35 67 10/07/16 00:15 97.7 59 20 143/70 (94) 90 10/06/16 20:39 97.6 72 19 115/62 (79) 95 10/06/16 20:35 74 10/06/16 16:25 67 10/06/16 15:37 97.9 71 16 94/77 (83) 94 10/06/16 13:05 62 10/06/16 11:53 97.6 66 18 123/89 (100) 97 I/O 10/06/16 10/06/16 10/06/16 10/07/16 10/07/16 10/07/16 06:59 14:59 22:59 06:59 14:59 22:59 Intake Total 300 ml 1050 ml 1090 ml Balance 300 ml 1050 ml 1090 ml Intake IV Total 300 ml 1050 ml 1090 ml # Voids 1 1 Laboratory Laboratory Tests Test 10/06/16 12:50 10/07/16 04:05 White Blood Count 13.6 10.7 Red Blood Count 5.21 5.13 Hemoglobin 14.7 14.6 Hematocrit 45.9 45.2 Mean Corpuscular Volume 88.2 88.1 Mean Corpuscular Hemoglobin 28.2 28.5 Mean Corpuscular Hemoglobin Concent 32.0 32.4 Red Cell Distribution Width 16.5 16.4 Platelet Count 150 157 Mean Platelet Volume 8.5 7.8 Neutrophils (%) (Auto) 78.6 79.6 Lymphocytes (%) (Auto) 11.5 10.9 Monocytes (%) (Auto) 7.7 6.7 Eosinophils (%) (Auto) 1.4 1.8 Basophils (%) (Auto) 0.8 1.0 Neutrophils # (Auto) 10.7 8.5 Lymphocytes # (Auto) 1.6 1.2 Monocytes # (Auto) 1.0 0.7 Eosinophils # (Auto) 0.2 0.2 Basophils # (Auto) 0.1 0.1 CBC Comment DIFF FINAL DIFF FINAL Differential Comment Blood Urea Nitrogen 8 10 Creatinine 0.79 0.71 Random Glucose 215 171 Calcium Level 8.4 8.1 Sodium Level 135 138 Potassium Level 4.5 4.1 Chloride Level 101 103 Carbon Dioxide Level 30.1 32.0 Anion Gap 4 3 Estimat Glomerular Filtration Rate 98 110 Prothrombin Time 17.1 Prothromb Time International Ratio 1.5 Imaging Last Impressions Abdomen/Pelvis CT 10/05/16 0000 Signed Impressions: Service Date/Time: Wednesday, October 05, 2016 10:25 - CONCLUSION: 1. Stranding in the fatty tissues juxtaposed between the head and uncinate process of the pancreas and the adjacent third portion of the duodenum. Diagnostic considerations include early diverticulitis or duodenitis. Please correlate with laboratory findings. 2. Probable postsurgical changes with multiple lateral rib resections inferiorly in the right hemithorax. 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 3. Diverticular disease of sigmoid without diverticulitis. 4. Bilateral small inguinal hernias which only contain fat. Xavier Hu MD Physical Exam HEENT: Normocephalic; atraumatic; no jaundice. CHEST: CTA, diminished CARDIAC: RRR ABDOMEN: Soft, mildly distended, nontender; no hepatosplenomegaly; bowel sounds are present in all four quadrants. EXTREMITIES: No clubbing, cyanosis, or edema. SKIN: Normal; no rash; no jaundice. 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 (Chaya ThomasP) Assessment and Plan Plan ASSESSMENT: - Lower GI Bleeding. 2 episodes of rectal bleeding, independent from stool- large amount last night, small to moderate amount today. Associated abdominal pain, n/v. No diarrhea, constipation. CT Abdomen and pelvis without IV contrast (10/05/16)---> stranding in the fatty tissues juxtaposed between the head and uncinate process of the pancreas and the adjacent third portion of the duodenum. Diagnostic considerations include early diverticulitis or duodenitis. Pt reports last colonoscopy was January of 2016 and that he had 36 benign polyps removed at that time. He states he is scheduled for another colonoscopy at the end of this year. No further episodes since arrival to ER. HH stable. - Abdominal pain, n/v. CT as above. Improved since being started on PPI with BID dosing and flagyl/cipro. It is unclear if his pain is related to severe duodenitis or possible diverticulitis. Would recommend continuing treatment and egd/colonoscopy in 4-6 weeks after treated for possible diverticulitis. Clinically improved- no abdominal pain at this time. Cont. Cipro/Flagyl x 10 days todal. - Leukocytosis. Cipro/Flagyl. Improved - Atrial fibrillation, on coumadin at home. - COPD, HTN, CAD, DM, Hyperlipidemia per attending PLAN: - Okay to d/c home from GI standpint - Cont. Cipro/Flagyl x 10 days total - Cont. PPI with BID dosing - FU [facility] in 1-2 weeks - No nuts, seeds, popcorn - EGD/Colonoscopy in 4-6 weeks as outpatient - Return to ER for bleeding or worsening symptoms - Pt seen and examined by Dr. Rick and myself and this note is written on his behalf (Chaya Thomas) Physician Comments Seen and examined with Chaya. Milton from GI point of view. Needs follow up in the office for further evaluation. (Jorge Rick MD) Chaya Thomas Oct 07, 2016 09:26 Jorge Rick MD Oct 07, 2016 09:40
== END 2016-10-07 11:39 | disposition home or self-care (01) ==
LOC: NEPE 09:24 → NEDA 12:49 → NEPGCP 15:39
PROVIDERS: ADMIT Family Medicine; ATTEND Family Medicine
DX: K29.81 Duodenitis with bleeding (principal); K21.9 Gastro-esophageal reflux disease without esophagitis; D72.829 Elevated white blood cell count, unspecified; I10 Essential (primary) hypertension; I25.10 Atherosclerotic heart disease of native coronary artery without angina pectoris; E11.9 Type 2 diabetes mellitus without complications; E78.5 Hyperlipidemia, unspecified; I48.91 Unspecified atrial fibrillation; J44.9 Chronic obstructive pulmonary disease, unspecified; I25.2 Old myocardial infarction; Z95.1 Presence of aortocoronary bypass graft; Z79.01 Long term (current) use of anticoagulants; Z95.3 Presence of xenogenic heart valve; Z87.891 Personal history of nicotine dependence; Z87.11 Personal history of peptic ulcer disease; Z86.010 Personal history of colon polyps; Z79.4 Long term (current) use of insulin
CPT/HCPCS: 74176; 80048; 80076; 82948; 83690; 85025; 85610; 86850; 86900; 86901; 93005; 96361; 96365; 96366; 96372; 96375; 96376; 99291; C9113; G0378; J0744; J1815; J2270; J2405; J7030

== ENCOUNTER 2016-10-15 10:48 | Emergency (ER) | payer MEDICARE, OTHER ==
[~2016-10-15] VITALS: Ht 167.6 cm; Wt 118.0 kg
[~2016-10-15 10:48] MED LIST changes: +ARTISOL EACH EYE; +BUSP10TA PO; -CARB0.5D16 EACH EYE; +CIPR-9 PO; +COUM5TAB PO; -EFFE75CA PO; +FLUO0.05 TOPICAL; +FURO20TA PO; +GABA300C5 PO; -HYDR-3129 PO; +KETO2CRE TOPICAL; -KETO2SHA5 TOP; +LISI10TA3 PO; -METF500 PO; +METF500T PO; +METR-1 PO; +NOVO7030P2 SQ; -NOVOLOGMXP SQ; -PRAV10 PO; +PRAV10TA PO; +PROT40TA PO; +SOTA80TA PO; +VENL75CA44 PO; +WARF-21 PO; -WARF5TAB PO; -[UNRECOGNIZED DRUG - CODE] PO
[2016-10-15 10:51] VITALS: BP 107/70; PULSE 78; RESP 22; TEMP 98.3; O2SAT 92
[2016-10-15] MEDS ORDERED: SODIUM CHLOR 0.9% 1000 ML INJ 1,000 ML IV SCH (13:10)
[2016-10-15] MEDS ORDERED: ONDANSETRON HCL 4 MG/2 ML VIAL IVP ONE (13:15)
[2016-10-15] MEDS ORDERED: FAMOTIDINE 20 MG/2 ML VIAL IV PUSH ONE (13:15)
[2016-10-15] MEDS ORDERED: SODIUM CHLORIDE 0.9% FLUSH 10 ML FLUSH IV FLUSH PRN (13:15)
[2016-10-15 13:22] VITALS: BP 99/67; PULSE 76; RESP 16; TEMP 97.8; O2SAT 92
--- NOTE | 2016-10-15 13:27 | PD ---
HPI Chief Complaint: GI Complaint Time Seen by Provider: 12:57 Travel History International Travel<30 days: No Contact w/Intl Traveler<30days: No Traveled to known affect area: No History of Present Illness HPI Patient has back to the emergency department being released from the hospital on the of last month complaining of abdominal pain again. Patient states this began 2 days ago. Patient states pain is sharp stabbing across his upper abdomen that occurs any time after he eats or drinks anything. Patient states pains feels similar to his here previously. Patient continues to have diarrhea. Patient states after he eats he becomes nauseous and vomits. Patient reports vomiting is nonbloody and nonbilious. Patient denies any melena or hematochezia. Patient has any chest pain, shortness of breath, dizziness, fevers, lightheadedness, or numbness or tingling anywhere. Patient states he's been taking his antibiotics and Protonix as previously prescribed, however, his symptoms return. Patient denies any pain currently. PFSH Past Medical History Hx Anticoagulant Therapy: Yes Arthritis: Yes Asthma: No Autoimmune Disease: No Blood Disorders: No Anxiety: Yes Depression: Yes Heart Rhythm Problems: Yes (AFIB) Cancer: No Cardiac Catheterization: Yes Cardiovascular Problems: Yes High Cholesterol: Yes Chemotherapy: No Chest Pain: Yes Congestive Heart Failure: No COPD: Yes Cerebrovascular Accident: No Diabetes: Yes Diminished Hearing: Yes (HEARING AIDS) Endocrine: Yes Gastrointestinal Disorders: Yes GERD: Yes Genitourinary: No Headaches: Yes Hiatal Hernia: No Hypertension: Yes Immune Disorder: No Kidney Stones: No Musculoskeletal: No Neurologic: No Psychiatric: Yes Reproductive: No Respiratory: Yes Migraines: No Myocardial Infarction: Yes Radiation Therapy: No Renal Failure: No Seizures: No Sickle Cell Disease: No Sleep Apnea: Yes Thyroid Disease: No Ulcer: No Past Surgical History Abdominal Surgery: No AICD: No Arteriovenous Shunt: No Cardiac Surgery: Yes (double bypass, aortic valve replacement, stent) Coronary Artery Bypass Graft: Yes (DOUBLE BYPASS, AORTIC VALVE, STENT) Ear Surgery: No Endocrine Surgery: No Eye Surgery: No Genitourinary Surgery: No Insulin Pump: No Joint Replacement: No Oral Surgery: Yes (removal of all the teeth) Thoracic Surgery: Yes (for heart surgeries) Other Surgery: Yes Social History Alcohol Use: Yes (OCCASIONAL) Tobacco Use: No (QUIT TUESDAY) Substance Use: No Allergies-Medications (Allergen,Severity, Reaction): Coded Allergies: niacin (Unverified Adverse Reaction, Unknown, 10/15/16) LISTED ALLERGY ON PAPERWORK FROM [facility] pravastatin (Verified Adverse Reaction, Unknown, 10/15/16) LISTED ALLERGY ON PAPERWORK FROM [facility], BUT PT IS CURRENTLY TAKING PRAVASTATIN simvastatin (Verified Adverse Reaction, Unknown, 10/15/16) LISTED [facility] ON [facility] Reported Meds & Prescriptions Reported Meds & Active Scripts Active Zofran Odt (Ondansetron Odt) 4 Mg Tab 4 Mg SL Q6HR PRN Protonix (Pantoprazole Sodium) 40 Mg Tab 40 Mg PO BID Flagyl (Metronidazole) 500 Mg Tab 500 Mg PO Q8HR Cipro (Ciprofloxacin HCl) 500 Mg Tab 500 Mg PO Q12HR Reported Coumadin (Warfarin) 5 Mg Tab 10 Mg PO TUESDAY Take 2 tablets (10mg) daily on Wednesdays Artificial Tears Eye Drops (Dextran 70/Hypromellose) 15 Ml Drops 1 Drop EACH EYE QID Metformin (Metformin HCl) 500 Mg Tab 2,000 Mg PO DAILY With a meal Fluocinonide Topical (Fluocinonide) 0.05% Cream 1 Applic TOPICAL BID PRN Apply thin layer to affected area(s) Novolin 70-30 Inj (Insulin Human Isoph/Insulin Regular) 1,000 Unit/10 Ml Vial 42 Units SQ BIDAC Warfarin 7.5 Mg Tab 7.5 Mg PO SUMOTUTHFRSA Take 1&1/2 tablets (7.5mg) daily on Tuesday,Tuesday,Tuesday,, Tuesday and Tuesday Furosemide 20 Mg Tab 20 Mg PO DAILY Ketoconazole Topical 2% Cream 1 Applic TOPICAL BID Gabapentin 300 Mg Cap 600 Mg PO TID Pravastatin 10 Mg Tab 10 Mg PO HS Buspirone (Buspirone HCl) 10 Mg Tab 10 Mg PO BID Sotalol (Sotalol HCl) 80 Mg Tab 80 Mg PO BID Lisinopril 10 Mg Tab 5 Mg PO DAILY Venlafaxine ER 24 HR (Venlafaxine HCl) 75 Mg Cap 225 Mg PO DAILY Mirtazapine 30 Mg Tab 30 Mg PO HS Review of Systems Except as stated in HPI: all other systems reviewed are Neg Physical Exam Narrative GENERAL: Well-developed, overly nourished, in no acute distress, and non-ill appearing. SKIN: Focused skin assessment warm and dry. Surgical scar noted over sternum from previous CABG. HEAD: Atraumatic. Normocephalic. EYES: Pupils equal and round. EOMI. No scleral icterus. No injection or drainage. ENT: No nasal bleeding or discharge. Mucous membranes pink and moist. NECK: Trachea midline. Supple. No nuclear rigidity. CARDIOVASCULAR: Regular rate and rhythm. No murmur appreciated. RESPIRATORY: No accessory muscle use. No respiratory distress. Decreased breath sounds throughout. GASTROINTESTINAL: Abdomen soft, non-tender, nondistended, and no guarding. Hepatic and splenic margins not palpable. Normal bowel sounds 4. No pulsatile mass. Abdominal wall reproducible hernia noted. MUSCULOSKELETAL: No obvious deformities. No clubbing. No cyanosis. 1+ bilateral lower extremity edema. Full range of motion. NEUROLOGICAL: Awake and alert. No obvious cranial nerve deficits. Motor grossly within normal limits. Normal speech. PSYCHIATRIC: Appropriate mood and affect; insight and judgment normal. Data Data Last Documented VS Vital Signs Date Time Temp Pulse Resp B/P (MAP) Pulse Ox O2 Delivery O2 Flow Rate FiO2 10/15/16 13:22 97.8 76 16 99/67 (78) 92 Room Air Orders Orders Complete Blood Count With Diff (10/15/16 11:27) Comprehensive Metabolic Panel (10/15/16 11:27) Urinalysis - C+S If Indicated (10/15/16 11:27) Iv Access Insert/Monitor (10/15/16 11:27) Oxygen Administration (10/15/16 11:27) Oximetry (10/15/16 11:27) Lipase (10/15/16 11:27) Prothrombin Time / Inr (Pt) (10/15/16 12:59) Act Partial Throm Time (Ptt) (10/15/16 12:59) Electrocardiogram (10/15/16 12:59) Ct Abd/Pel W Iv Contrast(Rout) (10/15/16 13:10) Us Abdomen Gallbladder (10/15/16 ) Ecg Monitoring (10/15/16 13:10) Ondansetron Inj (Zofran Inj) (10/15/16 13:15) Sodium Chlor 0.9% 1000 Ml Inj (Ns 1000 M (10/15/16 13:10) Sodium Chloride 0.9% Flush (Ns Flush) (10/15/16 13:15) Famotidine Inj (Pepcid Inj) (10/15/16 13:15) Chest, Single Ap (10/15/16 13:23) Ct Thorax/ Chest W Iv Contrast (10/15/16 ) Iohexol 350 Inj (Omnipaque 350 Inj) (10/15/16 15:41) Labs Laboratory Tests Test 10/15/16 13:35 10/15/16 14:20 10/15/16 15:20 Prothrombin Time 20.5 SEC Prothromb Time International Ratio 1.8 RATIO Activated Partial Thromboplast Time 31.4 SEC White Blood Count 16.3 TH/MM3 Red Blood Count 5.73 MIL/MM3 Hemoglobin 16.0 GM/DL Hematocrit 50.8 % Mean Corpuscular Volume 88.7 FL Mean Corpuscular Hemoglobin 28.0 PG Mean Corpuscular Hemoglobin Concent 31.6 % Red Cell Distribution Width 16.8 % Platelet Count 244 TH/MM3 Mean Platelet Volume 8.4 FL Neutrophils (%) (Auto) 81.6 % Lymphocytes (%) (Auto) 9.4 % Monocytes (%) (Auto) 7.0 % Eosinophils (%) (Auto) 1.1 % Basophils (%) (Auto) 0.9 % Neutrophils # (Auto) 13.3 TH/MM3 Lymphocytes # (Auto) 1.5 TH/MM3 Monocytes # (Auto) 1.1 TH/MM3 Eosinophils # (Auto) 0.2 TH/MM3 Basophils # (Auto) 0.1 TH/MM3 CBC Comment DIFF FINAL Differential Comment Blood Urea Nitrogen 11 MG/DL Creatinine 1.13 MG/DL Random Glucose 213 MG/DL Total Protein 7.9 GM/DL Albumin 3.4 GM/DL Calcium Level 9.0 MG/DL Alkaline Phosphatase 99 U/L Aspartate Amino Transf (AST/SGOT) 13 U/L Alanine Aminotransferase (ALT/SGPT) 24 U/L Total Bilirubin 0.3 MG/DL Sodium Level 136 MEQ/L Potassium Level 4.5 MEQ/L Chloride Level 95 MEQ/L Carbon Dioxide Level 35.3 MEQ/L Anion Gap 6 MEQ/L Estimat Glomerular Filtration Rate 65 ML/MIN Lipase 359 U/L Urine Color YELLOW Urine Turbidity CLEAR Urine pH 7.0 Urine Specific [place] 1.006 Urine Protein NEG mg/dL Urine Glucose (UA) 70 mg/dL Urine Ketones NEG mg/dL Urine Occult Blood NEG Urine Nitrite NEG Urine Bilirubin NEG Urine Urobilinogen LESS THAN 2.0 MG/DL Urine Leukocyte Esterase NEG Urine RBC LESS THAN 1 /hpf Urine WBC LESS THAN 1 /hpf Urine Hyaline Casts 1 /lpf Microscopic Urinalysis Comment CULT NOT INDICATED MDM Medical Decision Making Medical Screen Exam Complete: Yes Emergency Medical Condition: Yes Interpretation(s) EKG reviewed by Dr. Davison shows sinus rhythm with ventricular rate of 71. No STEMI. Chest x-ray read by the radiologist shows: 1. Rounded density involving the lateral inferior right hemithorax. This is new from the prior studies. CT of the thorax suggested to evaluate for possible mass. 2. Cardiomegaly. Ultrasound with the radiologist shows: 1. Bowel gas limits the study. 2. Hepatic steatosis. CT abdomen and pelvis read by the radiologist shows: 1. No acute abnormality. 2. No mass. 3. Stable right adrenal gland adenoma. 4. Colonic diverticulosis. CT the chest read by the radiologist shows: 1. The density seen on the chest x-ray within the right chest correlates 2 benign pleural scarring relating to multiple old right-sided rib fractures. No mass. 2. Coronary artery atherosclerotic calcifications. Differential Diagnosis Diverticulitis, pancreatitis, cholecystitis, biliary colic, ileus, small bowel obstruction, gastritis, colitis, pneumonia, electrolyte abnormality, other Narrative Course 1500 patient reassessed found to be sleeping comfortably in bed in no acute distress. The patient presented with abdominal pain vomiting and diarrhea.. The patient appeared comfortable, hydrated and the abdominal exam was unremarkable and minimal to nontender to me, and without defined focal tenderness. Laboratory and radiographic evaluation revealed no significant abnormality. There was no evidence of an acute, surgical abdomen at this time. There was no clinical or radiological evidence to support bowel obstruction, cholecystitis/cholelithiasis , pancreatitis, perforation of gastric ulcer, colitis, diverticulitis, bacterial peritonitis, obstruction, volvulus, early appendicitis, or hernial incarceration or strangulation at this time. There was no evidence to support vascular pathology such as AAA, mesenteric ischemia, nor significant GIB. There was also no clinical evidence by history, exam or risk factors to suggest atypical presentation of cardiac disease such as ACS, AMI or atypical angina. No evidence to suggest genitourinary etiology as well. During the course of the ED visit the patient was given IVF, the patient noted improvement. The patient was able to tolerate fluids at discharge. Clinical picture was discussed with the patient, as well as plan of care. The patient was instructed to follow up with their physician. Abdominal pain warnings were discussed with the patient. The patient is to return if worsens, pain worsens or changes, develop fever, inability to tolerate fluids with or without vomiting, unable to establish follow up or as needed. The patient agrees with plan. Patient in no obvious distress upon re-evaluation. All pertinent laboratory/ Radiology result(s) discussed with patient/family. Patient was asked if they wanted to speak to my attending, which the patient did not wish to do at this time. Patient was offered 24-hour observation, however, patient does not want to stay in the hospital. Any questions/concerns in reference to patient diagnosis/condition discussed and clarified prior to patient's discharge. Reinforced sheer importance of close follow up with patient's primary physician or primary care clinic. Instructed patient to return to ED immediately, if symptoms return/worsen. Pt showed understanding of above instructions. Further instructions and recommendations were detailed in discharge paperwork. Pt ambulated without difficulty out of ED at discharge. Diagnosis Primary Impression: Nausea and vomiting Qualified Codes: R11.2 - Nausea with vomiting, unspecified Additional Impression: Abdominal pain Qualified Codes: R10.9 - Unspecified abdominal pain Patient Instructions: Abdominal Pain (ED), Acute Nausea and Vomiting (ED), General Instructions Additional Instructions: Follow-up with your primary care physician and GI doctor as previously instructed. Follow up with primary care doctor or return here in 24 hours for recheck. Take all medication as prescribed. Continue previous antibiotics and Protonix as prescribed. Return to the emergency department if symptoms get worse, chest pain, shortness breath, fevers, unable tolerate fluids, or for other concerns. Med/Other Pt SpecificInfo: Prescription(s) given Scripts Ondansetron Odt (Zofran Odt) 4 Mg Tab 4 MG SL Q6HR Y for Nausea/Vomiting, #16 TAB 0 Refills Prov: Faizan Davison MD 10/15/16 Disposition: 01 DISCHARGE HOME Condition: Stable Sujit Allen Oct 15, 2016 13:27
[2016-10-15 14:04] LABS: APTT (PATIENT) 31.4 SEC (24.3-30.1); INTERNATIONAL NORMALIZED RATIO 1.8 RATIO; PROTHROMBIN TIME - PATIENT 20.5 SEC (9.8-11.6)
[2016-10-15 14:38] LABS: AUTOMATED NEUTROPHIL # 13.3 TH/MM3 (1.8-7.7); BASOPHIL # 0.1 TH/MM3 (0-0.2); BASOPHIL % 0.9 % (0.0-2.0); EOSINOPHIL # 0.2 TH/MM3 (0-0.4); EOSINOPHIL % 1.1 % (0.0-4.0); HEMATOCRIT 50.8 % (39.0-51.0); HEMO FLAGS DIFF FINAL; LYMPH % 9.4 % (9.0-44.0); LYMPHOCYTE # 1.5 TH/MM3 (1.0-4.8); MEAN CELL VOLUME 88.7 FL (80.0-100.0); MEAN CORPUSCULAR HGB CONC 31.6 % (32.0-36.0); NEUT % 81.6 % (16.0-70.0); PLATELET COUNT 244 TH/MM3 (150-450); RED BLOOD COUNT 5.73 MIL/MM3 (4.50-5.90); RED CELL DISTRIBUTION WIDTH 16.8 % (11.6-17.2); WHITE BLOOD COUNT 16.3 TH/MM3 (4.0-11.0)
[2016-10-15 15:01] LABS: ANION GAP 6 MEQ/L (5-15); AST (GOT) 13 U/L (15-37); BICARBONATE 35.3 MEQ/L (21.0-32.0); BLOOD UREA NITROGEN 11 MG/DL (7-18); CHLORIDE 95 MEQ/L (98-107); GLOMERULAR FILTRATION RATE 65 ML/MIN (>89); POTASSIUM 4.5 MEQ/L (3.5-5.1); SODIUM (NA) 136 MEQ/L (136-145)
--- NOTE | 2016-10-15 15:03 | RADRPT ---
EXAM DATE/TIME: 10/15/2016 13:39 [facility] COMPARISON: CT ABDOMEN & PELVIS W/O CONTRAST, October 05, 2016, 10:25. CHEST SINGLE AP, June 11, 2015, 21:41. INDICATIONS : Vomiting and diarrhea MEDICAL HISTORY : Chronic obstructive pulmonary disease. Diabetes mellitus type II. Neuropathy, atrial fibrillatio n SURGICAL HISTORY : CABG. ENCOUNTER: Initial ACUITY: 2 days PAIN SCORE: 2/10 LOCATION: Bilateral chest FINDINGS: A single portable frontal view the chest shows a 6.3 x 3.3 cm soft tissue density overlying the later al inferior right hemithorax. No effusions. The heart is moderately enlarged previous sternotomy wire s noted. No pulmonary vascular engorgement observed. CONCLUSION: 1. Rounded density involving the lateral inferior right hemithorax. This is new from the prior studie s. CT of the thorax suggested to evaluate for possible mass. 2. Cardiomegaly. Josesito Cardona Jr., MD on October 15, 2016 at 14:59 Board Certified Radiologist. This report was verified electronically.
[2016-10-15 15:05] LABS: ALKALINE PHOSPHATASE 99 U/L (45-117); ALT (GPT) 24 U/L (12-78); TOTAL BILIRUBIN ADULT 0.3 MG/DL (0.2-1.0)
--- NOTE | 2016-10-15 15:20 | RADRPT ---
EXAM DATE/TIME: 10/15/2016 14:06 [facility] COMPARISON: CT ABDOMEN & PELVIS W/O CONTRAST, October 05, 2016, 10:25. INDICATIONS : Right upper quadrant pain. MEDICAL HISTORY : Myocardial infarction. Hypercholesterolemia. Chronic obstructive pulmonary disease. Hearing loss, mao ateral hearing aides. Syncope. Parathesia. A-Fib. Sleep apnea. GERD. Arthiris. Joint pain. Diabetes m ellitus. Depression. Anxiety. PTSD. GI bleed. SURGICAL HISTORY : CABG. Caridac bypass. aortic valve replacement. Cardiac catheter with stent. ENCOUNTER: Initial ACUITY: 1 day PAIN SCORE: 2/10 LOCATION: Right upper quadrant MEASUREMENTS: LIVER: 19.4 cm length COMMON DUCT: 5 mm RIGHT KIDNEY: 11.0 x 6.7 x 7.6 cm FINDINGS: Bowel gas limits the current study. LIVER: The liver is partially obscured by bowel gas. The liver is diffusely echogenic. No mass or ductal dil atation. Hepatopedal flow within the portal vein. COMMON DUCT: No intraluminal mass or stone visualized. GALLBLADDER: Contains no stones, demonstrates no wall thickening or pericholecystic fluid.The gallbladder is not s ignificantly distended. PANCREAS: Bowel gas obscures much of the pancreas. Small portions of the head and body are observed. The visual ized portions are within normal limits. RIGHT KIDNEY: No evidence of hydronephrosis, stone, or mass. CONCLUSION: 1. Bowel gas limits the study. 2. Hepatic steatosis. Josesito Cardona Jr., MD on October 15, 2016 at 15:15 Board Certified Radiologist. This report was verified electronically.
[2016-10-15] MEDS ORDERED: IOHEXOL 350 MG/ML 10 ML VIAL (for RAD DIAG) IVCONTRAST ONE (15:41)
[2016-10-15 15:50] LABS: BLOOD, URINE NEG (NEG); GLUCOSE,URINE 70 mg/dL (NEG); HYALINE CAST, URINE 1 /lpf (RARE); KETONE, URINE NEG (NEG); NITRITE,URINE NEG (NEG); URINE COLOR YELLOW (YELLW/STRAW)
[2016-10-15 15:54] LABS: COMMENT (UR) CULT NOT INDICATED; CULTURE IF INDICATED CULT NOT INDICATED
--- NOTE | 2016-10-15 16:07 | RADRPT ---
EXAM DATE/TIME: 10/15/2016 15:29 [facility] COMPARISON: CT ABDOMEN & PELVIS W/O CONTRAST, October 05, 2016, 10:25. US ABDOMEN - GALLBLADDER, October 15 17, 14:06. CT ABDOMEN & PELVIS W CONTRAST, June 11, 2015, 23:33. INDICATIONS : Evaluate for mass. IV CONTRAST: 100 cc Omnipaque 350 (iohexol) IV ; Cumulative dose for multiple exams. ORAL CONTRAST: No oral contrast ingested. RADIATION DOSE: 20.51 CTDIvol (mGy) ; Combined studies - Thorax/Abdomen/Pelvis MEDICAL HISTORY : Cardiovascular disease. Hypertension. SURGICAL HISTORY : None. ENCOUNTER: Initial ACUITY: 1 day PAIN SCALE: 5/10 LOCATION: Bilateral abdomen TECHNIQUE: Volumetric scanning of the abdomen and pelvis was performed. Using automated exposure control and ad justment of the mA and/or kV according to patient size, radiation dose was kept as low as reasonably achievable to obtain optimal diagnostic quality images. DICOM format image data is available electro nically for review and comparison. FINDINGS: LOWER LUNGS: See the CT of the thorax dictated separately. LIVER: Homogeneously low density without lesion. There is no dilation of the biliary tree. No calcified ga llstones. SPLEEN: Normal size without lesion. PANCREAS: Within normal limits. KIDNEYS: Normal in size and shape. There is no mass, stone or hydronephrosis. Small simple cysts involving th e kidneys. The largest measures 2.6 cm posteriorly on the right. ADRENAL GLANDS: 2.1 x 1.3 cm nodule is long-term stable involving the right adrenal gland. No nodule on the left. VASCULAR: There is no aortic aneurysm. BOWEL/MESENTERY: The stomach, small bowel, and colon demonstrate no acute abnormality. There is no free intraperitone al air or fluid. Colonic diverticulosis without acute inflammation. ABDOMINAL WALL: Within normal limits. RETROPERITONEUM: There is no lymphadenopathy. BLADDER: No wall thickening or mass. REPRODUCTIVE: Within normal limits. INGUINAL: There is no lymphadenopathy or hernia. MUSCULOSKELETAL: Old right sided rib fractures. Degenerative thoracolumbar spine. Degenerative changes of the hips mao aterally. CONCLUSION: 1. No acute abnormality. 2. No mass. 3. Stable right adrenal gland adenoma. 4. Colonic diverticulosis. Josesito Cardona Jr., MD on October 15, 2016 at 15:59 Board Certified Radiologist. This report was verified electronically.
--- NOTE | 2016-10-15 16:10 | RADRPT ---
EXAM DATE/TIME: 10/15/2016 15:29 [facility] COMPARISON: No previous studies available for comparison. INDICATIONS : chest pain; Evaluate for mass. IV CONTRAST: 100 cc Omnipaque 350 (iohexol) IV ; Cumulative dose for multiple exams. RADIATION DOSE: 20.31 CTDIvol (mGy) ; Reconstructed from previous dataset, no dose MEDICAL HISTORY : Cardiovascular disease. Hypertension. SURGICAL HISTORY : None. ENCOUNTER: Initial ACUITY: 1 day PAIN SCALE: 5/10 LOCATION: Bilateral chest TECHNIQUE: Volumetric scanning of the chest was performed. Using automated exposure control and adjustment of t he mA and/or kV according to patient size, radiation dose was kept as low as reasonably achievable to obtain optimal diagnostic quality images. DICOM format image data is available electronically for review and comparison. Follow-up recommendations for detected pulmonary nodules are based at a minimum on nodule size and pa tient risk factors according to Fleischner Society Guidelines. FINDINGS: LUNGS: Linear areas of atelectasis involving the bases bilaterally but more pronounced on the left. No mass or acute infiltrate. PLEURA: There is smooth pleural thickening seen involving the posterior lateral right hemithorax. This is ass ociated with multiple old rib fractures. No mass. This pleural thickening account for the density see n on the chest x-ray. No effusions. MEDIASTINUM: The heart is normal in size. No pericardial effusion. Calcifications associated with the aortic bowel and mitral valve. Coronary artery and aortic atherosclerotic calcifications. Pulmonary arteries and aorta are normal in caliber. No adenopathy. AXILLAE: Within normal limits. No lymphadenopathy. SKELETAL: Median sternotomy wires. Old right-sided rib fractures. A degenerative thoracic spine. MISCELLANEOUS: See the CT of the abdomen and pelvis reported separately. CONCLUSION: 1. The density seen on the chest x-ray within the right chest correlates 2 benign pleural scarring re lating to multiple old right-sided rib fractures. No mass. 2. Coronary artery atherosclerotic calcifications. Josesito Cardona Jr., MD on October 15, 2016 at 16:05 Board Certified Radiologist. This report was verified electronically.
[2016-10-15] MEDS ORDERED: ZOFR4TAB3 SL (16:25)
--- NOTE | 2016-10-16 09:58 | EKG ---
Date Performed: 10/15/2016 Time Performed: 13:44:50 PTAGE: 70 years EKG: Sinus rhythm WITH SINUS ARRHYTHMIA NONSPECIFIC T-WAVE ABNORMALITY PROLONGED QT INTERVAL ABNORMAL ECG PREVIOUS TRACING : 10/05/2016 10.04 DOCTOR: Dayron Lopez Interpretating Date/Time 10/16/2016 09:56:47
== END 2016-10-15 17:46 | disposition home or self-care (01) ==
LOC: NEPE 10:48
DX: R11.2 Nausea with vomiting, unspecified (principal); R10.9 Unspecified abdominal pain; R19.7 Diarrhea, unspecified; R94.31 Abnormal electrocardiogram [ECG] [EKG]; E11.9 Type 2 diabetes mellitus without complications; I10 Essential (primary) hypertension; E78.00 Pure hypercholesterolemia, unspecified; G47.30 Sleep apnea, unspecified; H91.90 Unspecified hearing loss, unspecified ear; I25.2 Old myocardial infarction; Z79.4 Long term (current) use of insulin; Z79.01 Long term (current) use of anticoagulants; Z87.39 Personal history of other diseases of the musculoskeletal system and connective tissue; Z86.59 Personal history of other mental and behavioral disorders; Z86.79 Personal history of other diseases of the circulatory system; Z87.09 Personal history of other diseases of the respiratory system; Z87.19 Personal history of other diseases of the digestive system; Z87.891 Personal history of nicotine dependence
CPT/HCPCS: 71010; 71260; 74177; 76705; 80053; 81001; 83690; 85025; 85610; 85730; 93005; 96361; 96374; 96375; 99285; J2405; J7030; Q9967

== ENCOUNTER 2016-12-28 10:27 | Emergency (ER) | payer MEDICARE, OTHER ==
[~2016-12-28] VITALS: Ht 175.3 cm; Wt 120.0 kg
[~2016-12-28 10:27] MED LIST changes: +ZOFR4TAB3 SL
[2016-12-28 10:35] VITALS: BP 102/66; PULSE 71; RESP 16; TEMP 99; O2SAT 95
[2016-12-28] MEDS ORDERED: SODIUM CHLORIDE 0.9% FLUSH 10 ML FLUSH IV FLUSH PRN (11:15)
[2016-12-28 11:29] LABS: AUTOMATED NEUTROPHIL # 10.9 TH/MM3 (1.8-7.7); BASOPHIL # 0.1 TH/MM3 (0-0.2); BASOPHIL % 0.5 % (0.0-2.0); EOSINOPHIL # 0.1 TH/MM3 (0-0.4); EOSINOPHIL % 0.8 % (0.0-4.0); HEMATOCRIT 47.3 % (39.0-51.0); HEMO FLAGS DIFF FINAL; LYMPH % 14.5 % (9.0-44.0); LYMPHOCYTE # 2.1 TH/MM3 (1.0-4.8); MEAN CELL VOLUME 87.9 FL (80.0-100.0); MEAN CORPUSCULAR HEMOGLOBIN 29.5 PG (27.0-34.0); MEAN CORPUSCULAR HGB CONC 33.6 % (32.0-36.0); NEUT % 76.2 % (16.0-70.0); PLATELET COUNT 264 TH/MM3 (150-450); RED BLOOD COUNT 5.38 MIL/MM3 (4.50-5.90); RED CELL DISTRIBUTION WIDTH 15.5 % (11.6-17.2); WHITE BLOOD COUNT 14.3 TH/MM3 (4.0-11.0)
[2016-12-28] MEDS ORDERED: LANTINJ SQ (11:42)
[2016-12-28] MEDS ORDERED: LISI-519 PO (11:42)
[2016-12-28] MEDS ORDERED: NOVOINJ3 SQ (11:42)
[2016-12-28] MEDS ORDERED: NICO14DI T-DERMAL (11:42)
[2016-12-28] MEDS ORDERED: OMEP20TA93 PO (11:42)
[2016-12-28 11:52] LABS: ALT (GPT) 28 U/L (12-78); ANION GAP 8 MEQ/L (5-15); AST (GOT) 18 U/L (15-37); BLOOD UREA NITROGEN 11 MG/DL (7-18); CHLORIDE 103 MEQ/L (98-107); GLOMERULAR FILTRATION RATE 70 ML/MIN (>89); POTASSIUM 3.9 MEQ/L (3.5-5.1); SODIUM (NA) 137 MEQ/L (136-145)
[2016-12-28 11:55] LABS: ALKALINE PHOSPHATASE 110 U/L (45-117); TOTAL BILIRUBIN ADULT 0.7 MG/DL (0.2-1.0)
--- NOTE | 2016-12-28 12:21 | PD ---
HPI Chief Complaint: Abdominal Pain Time Seen by Provider: 10:53 Travel History International Travel<30 days: No Contact w/Intl Traveler<30days: No Traveled to known affect area: No History of Present Illness HPI This is a 71-year-old male who presents to the emergency department with abdominal pain, constant, moderate severity, mostly in the right abdomen feel like a band around his abdomen, associated with vomiting and decreased appetite. He has had some chills. He went to an urgent care this morning and he was very sweaty and they sent him here to the emergency department. He's never had abdominal surgery. He's never had symptoms like this before. He's denies any diarrhea but says he has been constipated for the past several days. PFSH Past Medical History Hx Anticoagulant Therapy: Yes (Coumadin) Arthritis: Yes Asthma: No Autoimmune Disease: No Blood Disorders: No Anxiety: Yes Depression: Yes Heart Rhythm Problems: Yes (AFIB) Cancer: No Cardiac Catheterization: Yes Cardiovascular Problems: Yes (CABG, HTN, VALVE replacement ) High Cholesterol: Yes Chemotherapy: No Chest Pain: Yes Congestive Heart Failure: No COPD: Yes Cerebrovascular Accident: No Diabetes: Yes Patient Takes Glucophage: Yes Diminished Hearing: Yes (HEARING AIDS) Endocrine: Yes Gastrointestinal Disorders: Yes GERD: Yes Genitourinary: No Headaches: Yes Hiatal Hernia: No Heparin Induced Thrombocytopen: No Hypertension: Yes Immune Disorder: No Kidney Stones: No Musculoskeletal: No Neurologic: No Psychiatric: Yes Reproductive: No Respiratory: Yes (COPD) Migraines: No Myocardial Infarction: Yes Radiation Therapy: No Renal Failure: No Seizures: No Sickle Cell Disease: No Sleep Apnea: Yes Thyroid Disease: No Ulcer: No Tetanus Vaccination: < 5 Years ?: Not Past Surgical History Abdominal Surgery: No AICD: No Arteriovenous Shunt: No Cardiac Surgery: Yes (double bypass, aortic valve replacement, stent) Coronary Artery Bypass Graft: Yes (DOUBLE BYPASS, AORTIC VALVE, STENT) Ear Surgery: No Endocrine Surgery: No Eye Surgery: No Genitourinary Surgery: No Insulin Pump: No Joint Replacement: No Oral Surgery: Yes (removal of all the teeth) Thoracic Surgery: Yes (4 heart surgeries) Other Surgery: Yes Social History Alcohol Use: Yes (OCCASIONAL) Tobacco Use: No Substance Use: No Allergies-Medications (Allergen,Severity, Reaction): Coded Allergies: niacin (Unverified Adverse Reaction, Unknown, 12/28/16) LISTED ALLERGY ON PAPERWORK FROM [facility] pravastatin (Verified Adverse Reaction, Unknown, 12/28/16) LISTED ALLERGY ON PAPERWORK FROM [facility], BUT PT IS CURRENTLY TAKING PRAVASTATIN simvastatin (Verified Adverse Reaction, Unknown, 12/28/16) LISTED ALLERGY ON PAPERWORK FROM [facility] Reported Meds & Prescriptions Reported Meds & Active Scripts Active Reported Omeprazole 20 Mg Tab 40 Mg PO DAILY Take 30 minutess before a meal for stomach acid Nicotine Patch (Nicotine) 14 Mg/24 Hr Patch 14 Mg T-DERMAL DAILY Start when finished with 21mg patch. Switch to 7mg patch when done. Lantus Solostar Pen Inj (Insulin Glargine) 300 Unit/3 Ml Pen 25 Units SQ BID Novolog Flexpen Inj (Insulin Aspart) 300 Unit/3 Ml Pen 15 Units SQ BIDAC Lisinopril 5 Mg Tab 2.5 Mg PO DAILY Coumadin (Warfarin) 5 Mg Tab 7.5 Mg PO DAILY Metformin (Metformin HCl) 500 Mg Tab 2,000 Mg PO DAILY With a meal Fluocinonide Topical (Fluocinonide) 0.05% Cream 1 Applic TOPICAL BID PRN Apply thin layer to affected area(s) Furosemide 20 Mg Tab 20 Mg PO DAILY Ketoconazole Topical 2% Cream 1 Applic TOPICAL BID Gabapentin 300 Mg Cap 600 Mg PO TID Pravastatin 10 Mg Tab 10 Mg PO HS Buspirone (Buspirone HCl) 10 Mg Tab 10 Mg PO BID Sotalol (Sotalol HCl) 80 Mg Tab 80 Mg PO BID Venlafaxine ER 24 HR (Venlafaxine HCl) 75 Mg Cap 225 Mg PO DAILY Mirtazapine 30 Mg Tab 30 Mg PO HS Review of Systems Except as stated in HPI: all other systems reviewed are Neg Physical Exam Narrative GENERAL:Well appearing, no acute distress SKIN: Focused skin assessment warm and dry. HEAD: Atraumatic. Normocephalic. EYES: Pupils equal and round. No injection or drainage. ENT: Moist mucous membranes NECK: Trachea midline. CARDIOVASCULAR: Regular rate and rhythm. No murmur appreciated. RESPIRATORY: Clear to auscultation. Breath sounds equal bilaterally. GASTROINTESTINAL: Abdomen soft, moderately tender to palpation in the right upper quadrant with no rebound or guarding, mildly tender to palpation in the left upper quadrant. MUSCULOSKELETAL: No obvious deformities. NEUROLOGICAL: Awake and alert. No obvious cranial nerve deficits. Moving all extremities. PSYCHIATRIC: Appropriate mood and affect; insight and judgment normal. Data Data Last Documented VS Vital Signs Date Time Temp Pulse Resp B/P (MAP) Pulse Ox O2 Delivery O2 Flow Rate FiO2 12/28/16 10:35 99.0 71 16 102/66 (78) 95 Orders Orders Electrocardiogram (12/28/16 ) Complete Blood Count With Diff (12/28/16 11:03) Comprehensive Metabolic Panel (12/28/16 11:03) Lipase (12/28/16 11:03) Urinalysis - C+S If Indicated (12/28/16 11:03) Ct Abd/Pel W Iv Contrast(Rout) (12/28/16 11:03) Iv Access Insert/Monitor (12/28/16 11:03) Ecg Monitoring (12/28/16 11:03) Oximetry (12/28/16 11:03) Sodium Chloride 0.9% Flush (Ns Flush) (12/28/16 11:15) Electrocardiogram (12/28/16 11:03) Troponin I (12/28/16 11:03) Iohexol 350 Inj (Omnipaque 350 Inj) (12/28/16 12:54) Labs Laboratory Tests Test 12/28/16 11:10 12/28/16 12:11 White Blood Count 14.3 TH/MM3 Red Blood Count 5.38 MIL/MM3 Hemoglobin 15.9 GM/DL Hematocrit 47.3 % Mean Corpuscular Volume 87.9 FL Mean Corpuscular Hemoglobin 29.5 PG Mean Corpuscular Hemoglobin Concent 33.6 % Red Cell Distribution Width 15.5 % Platelet Count 264 TH/MM3 Mean Platelet Volume 8.6 FL Neutrophils (%) (Auto) 76.2 % Lymphocytes (%) (Auto) 14.5 % Monocytes (%) (Auto) 8.0 % Eosinophils (%) (Auto) 0.8 % Basophils (%) (Auto) 0.5 % Neutrophils # (Auto) 10.9 TH/MM3 Lymphocytes # (Auto) 2.1 TH/MM3 Monocytes # (Auto) 1.1 TH/MM3 Eosinophils # (Auto) 0.1 TH/MM3 Basophils # (Auto) 0.1 TH/MM3 CBC Comment DIFF FINAL Differential Comment Blood Urea Nitrogen 11 MG/DL Creatinine 1.05 MG/DL Random Glucose 150 MG/DL Total Protein 7.6 GM/DL Albumin 3.4 GM/DL Calcium Level 8.5 MG/DL Alkaline Phosphatase 110 U/L Aspartate Amino Transf (AST/SGOT) 18 U/L Alanine Aminotransferase (ALT/SGPT) 28 U/L Total Bilirubin 0.7 MG/DL Sodium Level 137 MEQ/L Potassium Level 3.9 MEQ/L Chloride Level 103 MEQ/L Carbon Dioxide Level 26.0 MEQ/L Anion Gap 8 MEQ/L Estimat Glomerular Filtration Rate 70 ML/MIN Troponin I LESS THAN 0.02 NG/ML Lipase 164 U/L Urine Color YELLOW Urine Turbidity HAZY Urine pH 5.5 Urine Specific [place] 1.018 Urine Protein 30 mg/dL Urine Glucose (UA) NEG mg/dL Urine Ketones NEG mg/dL Urine Occult Blood NEG Urine Nitrite NEG Urine Bilirubin NEG Urine Urobilinogen 2.0 MG/DL Urine Leukocyte Esterase NEG Urine RBC 1 /hpf Urine WBC 2 /hpf Urine Squamous Epithelial Cells <1 /hpf Urine Hyaline Casts 7 /lpf Urine Mucus FEW /lpf Microscopic Urinalysis Comment CULT NOT INDICATED MDM Medical Decision Making Medical Screen Exam Complete: Yes Emergency Medical Condition: Yes Medical Record Reviewed: Yes (patient was seen in September and October here in our hospital with similar symptoms and at that time had evidence of duodenitis on CT scan. Patient was treated with Cipro and Flagyl and he improved.) Interpretation(s) Afebrile Leukocytosis 76% neutrophils Electrolytes are reassuring Troponin is normal LFTs are normal CT abdomen and pelvis: No acute process Differential Diagnosis Cholecystitis, cholelithiasis, gastritis, duodenitis, pancreatitis Narrative Course This is a 71-year-old male who presents to the emergency department with upper abdominal pain, nausea and vomiting. He says is very similar to his symptoms that he had over the past several months. He was placed on a monitor and an IV was established. CT abdomen and pelvis was obtained which was reassuring. Labs demonstrate a mild leukocytosis. I think it's reasonable to treat the patient with antibiotic therapy and antiemetics as he's had duodenitis in the past and he improved. I think it's very important that he follow-up with a logistics planning manager. Diagnosis Primary Impression: Abdominal pain Qualified Codes: R10.13 - Epigastric pain Patient Instructions: General Instructions Additional Instructions: If you develop severe or worsening abdominal pain, fever>100.4, persistent vomiting or inability to eat or drink return to the emergency department immediately. Follow up with your primary care physician in 1-2 days for a check-up. Med/Other Pt SpecificInfo: Prescription(s) given Scripts Ciprofloxacin (Cipro) 500 Mg Tab 500 MG PO Q12HR for Infection, #20 TAB Prov: Tami Bob MD 12/28/16 Metronidazole (Flagyl) 500 Mg Tab 500 MG PO Q8HR for Infection, #30 TAB Prov: Tami Bob MD 12/28/16 Pantoprazole (Protonix) 40 Mg Tab 40 MG PO BID for Reflux, #60 TAB 0 Refills Prov: Tami Bob MD 12/28/16 Ondansetron Odt (Zofran Odt) 4 Mg Tab 4 MG SL Q6HR Y for Nausea/Vomiting, #16 TAB 0 Refills Prov: Tami Bob MD 12/28/16 Disposition: 01 DISCHARGE HOME Condition: Stable Tami Bob MD Dec 28, 2016 12:21
[2016-12-28 12:22] LABS: BLOOD, URINE NEG (NEG); COMMENT (UR) CULT NOT INDICATED; CULTURE IF INDICATED CULT NOT INDICATED; GLUCOSE,URINE NEG (NEG); HYALINE CAST, URINE 7 /lpf (RARE); KETONE, URINE NEG (NEG); MUCUS URINE FEW /lpf (OCC); NITRITE,URINE NEG (NEG); PH, URINE 5.5 (5.0-8.5); SQUAMOUS EPITHELIAL CELL URINE <1 /hpf (0-5); URINE COLOR YELLOW (YELLW/STRAW)
[2016-12-28] MEDS ORDERED: IOHEXOL 350 MG/ML 10 ML VIAL (for RAD DIAG) IVCONTRAST ONE (12:54)
--- NOTE | 2016-12-28 13:06 | RADRPT ---
EXAM DATE/TIME: 12/28/2016 12:33 [facility] COMPARISON: CT ABDOMEN & PELVIS W CONTRAST, June 11, 2015, 23:33. CT ABDOMEN & PELVIS W CONTRAST, October 15, 2016, 15:29. INDICATIONS : Nausea, vomiting, hypotensive. IV CONTRAST: 95 cc Omnipaque 350 (iohexol) IV ORAL CONTRAST: No oral contrast ingested. RADIATION DOSE: 13.01 CTDIvol (mGy) MEDICAL HISTORY : Cardiovascular disease. Hypertension. Diabetes mellitus type 2. SURGICAL HISTORY : CABG ENCOUNTER: Initial ACUITY: 1 day PAIN SCALE: 5/10 LOCATION: abdomen TECHNIQUE: Volumetric scanning of the abdomen and pelvis was performed. Using automated exposure control and ad justment of the mA and/or kV according to patient size, radiation dose was kept as low as reasonably achievable to obtain optimal diagnostic quality images. DICOM format image data is available electro nically for review and comparison. FINDINGS: LOWER LUNGS: The visualized lower lungs are clear. LIVER: Decreased attenuation without lesion. There is no dilation of the biliary tree. No calcified gallst ones. SPLEEN: Normal size with small enhancing lesion the spleen, unchanged. PANCREAS: Within normal limits. KIDNEYS: Normal in size and shape. There is no mass, stone or hydronephrosis. Renal low densities. ADRENAL GLANDS: Left adrenal gland is normal limits. Right adrenal nodule again seen. VASCULAR: There is no aortic aneurysm. Atherosclerotic changes. BOWEL/MESENTERY: Diverticulosis of the colon. There is no free intraperitoneal air or fluid. ABDOMINAL WALL: Within normal limits. RETROPERITONEUM: There is no lymphadenopathy. BLADDER: No wall thickening or mass. REPRODUCTIVE: Within normal limits. INGUINAL: There is no lymphadenopathy or hernia. MUSCULOSKELETAL: Old right sided rib fractures are seen. CONCLUSION: 1. Diverticulosis without diverticulitis. 2. Mild hepatic steatosis. 3. Small enhancing lesion the spleen, unchanged and likely benign. 4. Bilateral renal low densities likely cysts. 5. Stable right adrenal adenoma. Alexy Wharton MD on December 28, 2016 at 13:00 Board Certified Radiologist. This report was verified electronically.
[2016-12-28] MEDS ORDERED: CIPR-9 PO (13:21)
[2016-12-28] MEDS ORDERED: PROT40TA PO (13:21)
[2016-12-28] MEDS ORDERED: METR-1 PO (13:21)
[2016-12-28] MEDS ORDERED: ZOFR4TAB3 SL (13:21)
--- NOTE | 2016-12-28 21:20 | EKG ---
Date Performed: 12/28/2016 Time Performed: 10:49:46 PTAGE: 71 years EKG: Sinus rhythm WITH SINUS ARRHYTHMIA POSSIBLE LEFT ATRIAL ENLARGEMENT ABNORMAL ECG PREVIOUS TRACING : 10/15/2016 13.44 Compared to prior tracing no significant change DOCTOR: Mason Marquez Interpretating Date/Time 12/28/2016 21:19:26
== END 2016-12-28 14:02 | disposition home or self-care (01) ==
LOC: NEPC 10:27
DX: R10.13 Epigastric pain (principal); R11.2 Nausea with vomiting, unspecified; D72.829 Elevated white blood cell count, unspecified; K57.90 Diverticulosis of intestine, part unspecified, without perforation or abscess without bleeding; K76.0 Fatty (change of) liver, not elsewhere classified; D35.01 Benign neoplasm of right adrenal gland; I49.8 Other specified cardiac arrhythmias; R94.31 Abnormal electrocardiogram [ECG] [EKG]; I48.91 Unspecified atrial fibrillation
CPT/HCPCS: 74177; 80053; 81001; 83690; 84484; 85025; 93005; 99285; Q9967

== ENCOUNTER 2016-12-30 11:49 | Emergency (ER) | payer MEDICARE, OTHER ==
[~2016-12-30] VITALS: Ht 175.3 cm; Wt 111.0 kg
[~2016-12-30 11:49] MED LIST changes: -ARTISOL EACH EYE; +LANTINJ SQ; +LISI-519 PO; -LISI10TA3 PO; +NICO14DI T-DERMAL; -NOVO7030P2 SQ; +NOVOINJ3 SQ; +OMEP20TA93 PO; -WARF-21 PO
[2016-12-30 11:53] VITALS: BP 191/100; PULSE 61; RESP 32; TEMP 97.6; O2SAT 99
--- NOTE | 2016-12-30 11:57 | PD ---
HPI Chief Complaint: abdominal pain Time Seen by Provider: 11:57 Travel History International Travel<30 days: No Contact w/Intl Traveler<30days: No History of Present Illness HPI 71-year-old male with history of T2DM, HTN, CABG, AVR, on Coumadin, recent diagnosis duodenitis presents to the ED for evaluation of worsening abdominal pain. Patient was seen in the ED 2 days ago, provided prescriptions for Flagyl , Cipro, Zofran and Protonix. He endorses compliance with the medication and states he was doing well until he had a few grapes last night. Shortly after this he states that his pain became unbearable and he had several episodes of nonbloody, nonbilious vomiting. He states the pain has continued this morning accompanied by dizziness and palpitations of the heart. He endorses a small bowel movement nonbloody this morning. States his blood glucose has been ~ 200. He is followed by the [facility]. He endorses colonoscopy approximately 3 years ago with multiple polyps found at that time. PFSH Past Medical History Hx Anticoagulant Therapy: Yes (Coumadin) Arthritis: Yes Asthma: No Autoimmune Disease: No Blood Disorders: No Anxiety: Yes Depression: Yes Heart Rhythm Problems: Yes (AFIB) Cancer: No Cardiac Catheterization: Yes Cardiovascular Problems: Yes (CABG, HTN, VALVE replacement ) High Cholesterol: Yes Chemotherapy: No Chest Pain: Yes Congestive Heart Failure: No COPD: Yes Cerebrovascular Accident: No Diabetes: Yes Diminished Hearing: Yes (HEARING AIDS) Endocrine: Yes Gastrointestinal Disorders: Yes GERD: Yes Genitourinary: No Headaches: Yes Hiatal Hernia: No Heparin Induced Thrombocytopen: No Hypertension: Yes Immune Disorder: No Kidney Stones: No Musculoskeletal: No Neurologic: No Psychiatric: Yes Reproductive: No Respiratory: Yes (COPD) Migraines: No Myocardial Infarction: Yes Radiation Therapy: No Renal Failure: No Seizures: No Sickle Cell Disease: No Sleep Apnea: Yes Thyroid Disease: No Ulcer: No Past Surgical History Abdominal Surgery: No AICD: No Arteriovenous Shunt: No Cardiac Surgery: Yes (double bypass, aortic valve replacement, stent) Coronary Artery Bypass Graft: Yes (DOUBLE BYPASS, AORTIC VALVE, STENT) Ear Surgery: No Endocrine Surgery: No Eye Surgery: No Genitourinary Surgery: No Insulin Pump: No Joint Replacement: No Oral Surgery: Yes (removal of all the teeth) Thoracic Surgery: Yes (4 heart surgeries) Other Surgery: Yes Social History Alcohol Use: Yes (OCCASIONAL) Tobacco Use: No Substance Use: No Allergies-Medications (Allergen,Severity, Reaction): Coded Allergies: niacin (Unverified Adverse Reaction, Unknown, 12/28/16) LISTED ALLERGY ON PAPERWORK FROM [facility] pravastatin (Verified Adverse Reaction, Unknown, 12/28/16) LISTED ALLERGY ON PAPERWORK FROM [facility], BUT PT IS CURRENTLY TAKING PRAVASTATIN simvastatin (Verified Adverse Reaction, Unknown, 12/28/16) LISTED ALLERGY ON PAPERWORK FROM [facility] Reported Meds & Prescriptions Reported Meds & Active Scripts Active Bentyl (Dicyclomine HCl) 10 Mg Cap 10 Mg PO TID Cipro (Ciprofloxacin HCl) 500 Mg Tab 500 Mg PO Q12HR Flagyl (Metronidazole) 500 Mg Tab 500 Mg PO Q8HR Protonix (Pantoprazole Sodium) 40 Mg Tab 40 Mg PO BID Zofran Odt (Ondansetron Odt) 4 Mg Tab 4 Mg SL Q6HR PRN Reported Omeprazole 20 Mg Tab 40 Mg PO DAILY Take 30 minutess before a meal for stomach acid Nicotine Patch (Nicotine) 14 Mg/24 Hr Patch 14 Mg T-DERMAL DAILY Start when finished with 21mg patch. Switch to 7mg patch when done. Lantus Solostar Pen Inj (Insulin Glargine) 300 Unit/3 Ml Pen 25 Units SQ BID Novolog Flexpen Inj (Insulin Aspart) 300 Unit/3 Ml Pen 15 Units SQ BIDAC Lisinopril 5 Mg Tab 2.5 Mg PO DAILY Coumadin (Warfarin) 5 Mg Tab 7.5 Mg PO DAILY Metformin (Metformin HCl) 500 Mg Tab 2,000 Mg PO DAILY With a meal Fluocinonide Topical (Fluocinonide) 0.05% Cream 1 Applic TOPICAL BID PRN Apply thin layer to affected area(s) Furosemide 20 Mg Tab 20 Mg PO DAILY Ketoconazole Topical 2% Cream 1 Applic TOPICAL BID Gabapentin 300 Mg Cap 600 Mg PO TID Pravastatin 10 Mg Tab 10 Mg PO HS Buspirone (Buspirone HCl) 10 Mg Tab 10 Mg PO BID Sotalol (Sotalol HCl) 80 Mg Tab 80 Mg PO BID Venlafaxine ER 24 HR (Venlafaxine HCl) 75 Mg Cap 225 Mg PO DAILY Mirtazapine 30 Mg Tab 30 Mg PO HS Review of Systems Except as stated in HPI: all other systems reviewed are Neg Physical Exam Narrative GENERAL: Well-nourished, well-developed obese white male. SKIN: Focused skin assessment pale, diaphoretic HEAD: Normocephalic. EYES: No scleral icterus. No injection or drainage. NECK: Supple, trachea midline. No JVD or lymphadenopathy. CARDIOVASCULAR: Regular rate and rhythm without murmurs, gallops, or rubs. RESPIRATORY: Breath sounds clear, equal bilaterally. No accessory muscle use. GASTROINTESTINAL: Abdomen firm, tender in the upper quadrants, hypoactive bowel sounds. MUSCULOSKELETAL: No cyanosis, or edema. NEUROLOGICAL: Awake and alert. Cranial nerves II through XII intact. Motor and sensory grossly within normal limits. Five out of 5 muscle strength in all muscle groups. Normal speech. BACK: Nontender without obvious deformity. No CVA tenderness. Data Data Last Documented VS Vital Signs Date Time Temp Pulse Resp B/P (MAP) Pulse Ox O2 Delivery O2 Flow Rate FiO2 12/30/16 15:26 75 16 185/112 (136) 100 12/30/16 14:30 Room Air 12/30/16 11:53 97.6 Orders Orders Complete Blood Count With Diff (12/30/16 12:04) Comprehensive Metabolic Panel (12/30/16 12:04) Lipase (12/30/16 12:04) Lactic Acid (12/30/16 12:04) Prothrombin Time / Inr (Pt) (12/30/16 12:04) Act Partial Throm Time (Ptt) (12/30/16 12:04) Urinalysis - C+S If Indicated (12/30/16 12:04) Iv Access Insert/Monitor (12/30/16 12:04) Ecg Monitoring (12/30/16 12:04) Oximetry (12/30/16 12:04) NPO (12/30/16 12:04) Ondansetron Inj (Zofran Inj) (12/30/16 12:15) Sodium Chloride 0.9% Flush (Ns Flush) (12/30/16 12:15) Electrocardiogram (12/30/16 12:04) Hydromorphone Pf Inj (Dilaudid Pf Inj) (12/30/16 12:15) Ct Brain W/O Iv Contrast(Rout) (12/30/16 ) Troponin I (12/30/16 12:04) Ed Discharge Order (12/30/16 15:02) Labs Laboratory Tests Test 12/30/16 12:20 12/30/16 14:05 White Blood Count 14.9 TH/MM3 Red Blood Count 5.65 MIL/MM3 Hemoglobin 16.7 GM/DL Hematocrit 49.5 % Mean Corpuscular Volume 87.7 FL Mean Corpuscular Hemoglobin 29.5 PG Mean Corpuscular Hemoglobin Concent 33.7 % Red Cell Distribution Width 15.3 % Platelet Count 258 TH/MM3 Mean Platelet Volume 8.5 FL Neutrophils (%) (Auto) 78.7 % Lymphocytes (%) (Auto) 12.4 % Monocytes (%) (Auto) 7.4 % Eosinophils (%) (Auto) 0.8 % Basophils (%) (Auto) 0.7 % Neutrophils # (Auto) 11.8 TH/MM3 Lymphocytes # (Auto) 1.8 TH/MM3 Monocytes # (Auto) 1.1 TH/MM3 Eosinophils # (Auto) 0.1 TH/MM3 Basophils # (Auto) 0.1 TH/MM3 CBC Comment DIFF FINAL Differential Comment Prothrombin Time 40.4 SEC Prothromb Time International Ratio 3.5 RATIO Activated Partial Thromboplast Time 44.4 SEC Blood Urea Nitrogen 10 MG/DL Creatinine 1.16 MG/DL Random Glucose 166 MG/DL Total Protein 7.9 GM/DL Albumin 3.5 GM/DL Calcium Level 9.1 MG/DL Alkaline Phosphatase 102 U/L Aspartate Amino Transf (AST/SGOT) 16 U/L Alanine Aminotransferase (ALT/SGPT) 27 U/L Total Bilirubin 0.4 MG/DL Sodium Level 135 MEQ/L Potassium Level 4.1 MEQ/L Chloride Level 99 MEQ/L Carbon Dioxide Level 26.7 MEQ/L Anion Gap 9 MEQ/L Estimat Glomerular Filtration Rate 62 ML/MIN Lactic Acid Level 2.0 mmol/L Troponin I LESS THAN 0.02 NG/ML Lipase 391 U/L Urine Color YELLOW Urine Turbidity CLEAR Urine pH 7.5 Urine Specific [place] 1.012 Urine Protein NEG mg/dL Urine Glucose (UA) NEG mg/dL Urine Ketones NEG mg/dL Urine Occult Blood NEG Urine Nitrite NEG Urine Bilirubin NEG Urine Urobilinogen LESS THAN 2.0 MG/DL Urine Leukocyte Esterase NEG Urine RBC LESS THAN 1 /hpf Urine WBC 1 /hpf Microscopic Urinalysis Comment CULT NOT INDICATED MDM Medical Decision Making Medical Screen Exam Complete: Yes Emergency Medical Condition: Yes Differential Diagnosis Duodenitis versus diverticulitis versus ACS versus TIA versus other Narrative Course 71-year-old male with history of T2DM, HTN, CABG, AVR, on Coumadin, recent diagnosis of duodenitis presents to the ED for evaluation of worsening abdominal pain. Patient was seen in the ED 2 days ago, provided prescriptions for Flagyl, Cipro, Zofran and Protonix. He endorses compliance with the medication and states he was doing well until he had a few grapes last night. Shortly after his pain became unbearable and he had several episodes of NBNB vomiting. He states the pain has continued this morning accompanied by dizziness and palpitations of the heart. He endorses a small NB BM this morning. Vitals reviewed. Patient is hypertensive on presentation. He states that he thinks that he vomited up his antihypertensive medication this morning. He is diaphoretic, belly is tender in the upper quadrants. No focal neuro deficits. IV was established. He was administered 1 mg Dilaudid, 4 mg Zofran IV. CBC: CBC 14.9 CMP: Unremarkable Lactic acid: 2.0 UA: No culture indicated Troponin: Negative 1 On recheck the patient reports improvement of his symptoms. I offered him admission for observation which he declines at this time. He is instructed to continue with antibiotics as previously prescribed, follow up with the temple meat cutter, return as needed. The patient and his indicated understanding of the instructions and are agreeable to the plan. The patient is stable and discharged home. Diagnosis Primary Impression: Abdominal pain Qualified Codes: R10.9 - Unspecified abdominal pain Additional Impression: Nausea & vomiting Qualified Codes: R11.2 - Nausea with vomiting, unspecified Referrals: Section Leader Primary Care Physician Patient Instructions: Diet for Stomach Ulcers and Gastritis (ED), General Instructions Additional Instructions: Rest, hydrate. Take your blood pressure medications as prescribed. Resume at home medications as previously prescribed. Take Bentyl as prescribed. Follow-up with the primary care and [facility] meat cutter as discussed. Return to the ED for any urgent or emergent medical condition. Med/Other Pt SpecificInfo: Prescription(s) given Scripts Dicyclomine (Bentyl) 10 Mg Cap 10 MG PO TID for Bowel Management, #15 CAP 0 Refills Prov: Abelardo Jama MD 12/30/16 Disposition: 01 DISCHARGE HOME Condition: Stable Juli Rebolledo Dec 30, 2016 11:57
[2016-12-30 12:01] VITALS: BP 187/102; PULSE 66; RESP 18; RESP 25; O2SAT 97
[2016-12-30] MEDS ORDERED: SODIUM CHLORIDE 0.9% FLUSH 10 ML FLUSH IV FLUSH PRN (12:15)
[2016-12-30] MEDS ORDERED: HYDROmorphone HCL PF 1 MG/ML VIAL IVS ONE (12:15)
[2016-12-30] MEDS ORDERED: ONDANSETRON HCL 4 MG/2 ML VIAL IVP ONE (12:15)
[2016-12-30 12:20] VITALS: O2SAT 96
[2016-12-30 12:55] LABS: AUTOMATED NEUTROPHIL # 11.8 TH/MM3 (1.8-7.7); BASOPHIL # 0.1 TH/MM3 (0-0.2); BASOPHIL % 0.7 % (0.0-2.0); EOSINOPHIL # 0.1 TH/MM3 (0-0.4); EOSINOPHIL % 0.8 % (0.0-4.0); HEMATOCRIT 49.5 % (39.0-51.0); HEMO FLAGS DIFF FINAL; LYMPH % 12.4 % (9.0-44.0); LYMPHOCYTE # 1.8 TH/MM3 (1.0-4.8); MEAN CELL VOLUME 87.7 FL (80.0-100.0); MEAN CORPUSCULAR HEMOGLOBIN 29.5 PG (27.0-34.0); MEAN CORPUSCULAR HGB CONC 33.7 % (32.0-36.0); MONO % 7.4 % (0.0-8.0); NEUT % 78.7 % (16.0-70.0); PLATELET COUNT 258 TH/MM3 (150-450); RED BLOOD COUNT 5.65 MIL/MM3 (4.50-5.90); RED CELL DISTRIBUTION WIDTH 15.3 % (11.6-17.2); WHITE BLOOD COUNT 14.9 TH/MM3 (4.0-11.0)
[2016-12-30 12:58] LABS: APTT (PATIENT) 44.4 SEC (24.3-30.1); INTERNATIONAL NORMALIZED RATIO 3.5 RATIO; PROTHROMBIN TIME - PATIENT 40.4 SEC (9.8-11.6)
[2016-12-30 13:08] LABS: ALT (GPT) 27 U/L (12-78); ANION GAP 9 MEQ/L (5-15); AST (GOT) 16 U/L (15-37); BICARBONATE 26.7 MEQ/L (21.0-32.0); BLOOD UREA NITROGEN 10 MG/DL (7-18); CHLORIDE 99 MEQ/L (98-107); GLOMERULAR FILTRATION RATE 62 ML/MIN (>89); POTASSIUM 4.1 MEQ/L (3.5-5.1); SODIUM (NA) 135 MEQ/L (136-145)
[2016-12-30 13:12] LABS: ALKALINE PHOSPHATASE 102 U/L (45-117); TOTAL BILIRUBIN ADULT 0.4 MG/DL (0.2-1.0)
--- NOTE | 2016-12-30 14:13 | RADRPT ---
EXAM DATE/TIME: 12/30/2016 13:37 [facility] COMPARISON: CT BRAIN W/O CONTRAST, June 11, 2015, 21:51. INDICATIONS : Dizziness. RADIATION DOSE: 52.84 CTDIvol (mGy) MEDICAL HISTORY : Cardiovascular disease. Hypertension. Chronic obstructive pulmonary disease. SURGICAL HISTORY : None. ENCOUNTER: Initial ACUITY: 1 day PAIN SCALE: 0/10 LOCATION: cranial TECHNIQUE: Multiple contiguous axial images were obtained of the head. Using automated exposure control and adj ustment of the mA and/or kV according to patient size, radiation dose was kept as low as reasonably a chievable to obtain optimal diagnostic quality images. DICOM format image data is available electro nically for review and comparison. FINDINGS: CEREBRUM: The ventricles are normal for age. No evidence of midline shift, mass lesion, hemorrhage or acute in farction. No extra-axial fluid collections are seen. POSTERIOR FOSSA: The cerebellum and brainstem are intact. The 4th ventricle is midline. The cerebellopontine angle i s unremarkable. EXTRACRANIAL: The visualized portion of the orbits is intact. SKULL: The calvaria is intact. No evidence of skull fracture. CONCLUSION: No acute disease. Josesito Cardona Jr., MD on December 30, 2016 at 14:10 Board Certified Radiologist. This report was verified electronically.
[2016-12-30 14:28] LABS: BLOOD, URINE NEG (NEG); GLUCOSE,URINE NEG (NEG); KETONE, URINE NEG (NEG); NITRITE,URINE NEG (NEG); PH, URINE 7.5 (5.0-8.5); URINE COLOR YELLOW (YELLW/STRAW)
[2016-12-30 14:30] VITALS: BP 175/103; PULSE 69; RESP 16; O2SAT 95
[2016-12-30 14:31] LABS: COMMENT (UR) CULT NOT INDICATED; CULTURE IF INDICATED CULT NOT INDICATED
[2016-12-30] MEDS ORDERED: DICY10 PO (15:03)
[2016-12-30 15:26] VITALS: BP 185/112
--- NOTE | 2016-12-31 16:31 | EKG ---
Date Performed: 12/30/2016 Time Performed: 13:25:34 PTAGE: 71 years EKG: RIGHT BUNDLE BRANCH BLOCK ATRIAL ABNORMALITY DIFFUSED NONSPECIFIC T-WAVE CHANGES Compared t o PREVIOUS TRACING , T-wave changes slightly more prominent, otherwise no significant díaz e. ABNORMAL ECG \ PREVIOUS TRACIN12/28/2016 10.49 DOCTOR: Alessandro Tuttle Interpretating Date/Time 12/31/2016 16:29:57
--- NOTE | 2017-01-03 07:39 | PD ---
Data Data Last Documented VS Vital Signs Date Time Temp Pulse Resp B/P (MAP) Pulse Ox O2 Delivery O2 Flow Rate FiO2 12/30/16 15:26 75 16 185/112 (136) 100 12/30/16 14:30 Room Air 12/30/16 11:53 97.6 Orders Orders Complete Blood Count With Diff (12/30/16 12:04) Comprehensive Metabolic Panel (12/30/16 12:04) Lipase (12/30/16 12:04) Lactic Acid (12/30/16 12:04) Prothrombin Time / Inr (Pt) (12/30/16 12:04) Act Partial Throm Time (Ptt) (12/30/16 12:04) Urinalysis - C+S If Indicated (12/30/16 12:04) Iv Access Insert/Monitor (12/30/16 12:04) Ecg Monitoring (12/30/16 12:04) Oximetry (12/30/16 12:04) NPO (12/30/16 12:04) Ondansetron Inj (Zofran Inj) (12/30/16 12:15) Sodium Chloride 0.9% Flush (Ns Flush) (12/30/16 12:15) Electrocardiogram (12/30/16 12:04) Hydromorphone Pf Inj (Dilaudid Pf Inj) (12/30/16 12:15) Ct Brain W/O Iv Contrast(Rout) (12/30/16 ) Troponin I (12/30/16 12:04) Ed Discharge Order (12/30/16 15:02) Labs Laboratory Tests Test 12/30/16 12:20 12/30/16 14:05 White Blood Count 14.9 TH/MM3 Red Blood Count 5.65 MIL/MM3 Hemoglobin 16.7 GM/DL Hematocrit 49.5 % Mean Corpuscular Volume 87.7 FL Mean Corpuscular Hemoglobin 29.5 PG Mean Corpuscular Hemoglobin Concent 33.7 % Red Cell Distribution Width 15.3 % Platelet Count 258 TH/MM3 Mean Platelet Volume 8.5 FL Neutrophils (%) (Auto) 78.7 % Lymphocytes (%) (Auto) 12.4 % Monocytes (%) (Auto) 7.4 % Eosinophils (%) (Auto) 0.8 % Basophils (%) (Auto) 0.7 % Neutrophils # (Auto) 11.8 TH/MM3 Lymphocytes # (Auto) 1.8 TH/MM3 Monocytes # (Auto) 1.1 TH/MM3 Eosinophils # (Auto) 0.1 TH/MM3 Basophils # (Auto) 0.1 TH/MM3 CBC Comment DIFF FINAL Differential Comment Prothrombin Time 40.4 SEC Prothromb Time International Ratio 3.5 RATIO Activated Partial Thromboplast Time 44.4 SEC Blood Urea Nitrogen 10 MG/DL Creatinine 1.16 MG/DL Random Glucose 166 MG/DL Total Protein 7.9 GM/DL Albumin 3.5 GM/DL Calcium Level 9.1 MG/DL Alkaline Phosphatase 102 U/L Aspartate Amino Transf (AST/SGOT) 16 U/L Alanine Aminotransferase (ALT/SGPT) 27 U/L Total Bilirubin 0.4 MG/DL Sodium Level 135 MEQ/L Potassium Level 4.1 MEQ/L Chloride Level 99 MEQ/L Carbon Dioxide Level 26.7 MEQ/L Anion Gap 9 MEQ/L Estimat Glomerular Filtration Rate 62 ML/MIN Lactic Acid Level 2.0 mmol/L Troponin I LESS THAN 0.02 NG/ML Lipase 391 U/L Urine Color YELLOW Urine Turbidity CLEAR Urine pH 7.5 Urine Specific [place] 1.012 Urine Protein NEG mg/dL Urine Glucose (UA) NEG mg/dL Urine Ketones NEG mg/dL Urine Occult Blood NEG Urine Nitrite NEG Urine Bilirubin NEG Urine Urobilinogen LESS THAN 2.0 MG/DL Urine Leukocyte Esterase NEG Urine RBC LESS THAN 1 /hpf Urine WBC 1 /hpf Microscopic Urinalysis Comment CULT NOT INDICATED MDM Supervised Visit with [id number]: Yes Narrative Course I, Dr. Jama, have reviewed the advance practice practitioner's documentation and am in agreement, met with the patient face to face, made the diagnosis, and the medical decision making was done by me. *My assessment and Findings: Patient seen and examined by me in addition to Juli Rebolledo PA-C, 71-year-old male presents emergency department for second evaluation of abdominal pain. Abdomen is benign by me. Basic labs repeated today which negative. Diagnosed with duodenitis by CAT scan 2 days ago. Initially offered admission the patient states he is feeling well and would like to go home. Discussed with him that duodenitis may take some time to resolve but I suggested that he continue to try symptomatic management home. Certainly if he develops any concerning signs symptoms he was prompted to return to the emergency department for another evaluation. He verbalized understanding and agreement and he would like to go home his had no objection. Diagnosis Primary Impression: Abdominal pain Additional Impression: Nausea & vomiting Referrals: Reel Winder Primary Care Physician Patient Instructions: General Instructions, Diet for Stomach Ulcers and Gastritis (ED) Departure Forms: Tests/Procedures Additional Instruction: Rest, hydrate. Take your blood pressure medications as prescribed. Resume at home medications as previously prescribed. Take Bentyl as prescribed. 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 Return to the ED for any urgent or emergent medical condition. Scripts Dicyclomine (Bentyl) 10 Mg Cap 10 MG PO TID for Bowel Management, #15 CAP 0 Refills Prov: Abelardo Jama MD 12/30/16 Disposition: 01 DISCHARGE HOME Condition: Stable Abelardo Jama MD Jan 03, 2017 07:39
== END 2016-12-30 15:35 | disposition home or self-care (01) ==
LOC: NEPC 11:49
DX: R10.9 Unspecified abdominal pain (principal); R11.2 Nausea with vomiting, unspecified; R42 Dizziness and giddiness; R00.2 Palpitations; R94.31 Abnormal electrocardiogram [ECG] [EKG]; I45.10 Unspecified right bundle-branch block; E11.9 Type 2 diabetes mellitus without complications; I10 Essential (primary) hypertension; J44.9 Chronic obstructive pulmonary disease, unspecified
CPT/HCPCS: 70450; 80053; 81001; 83605; 83690; 84484; 85025; 85610; 85730; 93005; 96374; 96375; 99285; J1170; J2405